=== PATIENT | male | born 1950 | race American Indian/Alaskan Native ===

== ENCOUNTER 2017-04-29 10:08 | Inpatient (IN) | payer MEDICARE ==
[2017-04-29 10:41] LABS: Basophils % (Auto) 0.8 % (0.0-1.8); Eosinophils % (Auto) 1.4 % (0.0-4.3); Hematocrit 51.3 % (35.5-45.6); Hemoglobin 17.5 gm/dl (11.8-15.2); Mean Corpuscular HGB Conc 34 % (32-34); Mean Corpuscular Hemoglobin 31 pg (28-32); Mean Corpuscular Volume 90 fl (84-94); Platelet Count 213 K/mm3 (140-440); Red Cell Distribution Width 15.1 % (13.2-15.2)
[2017-04-29 10:52] LABS: INR 0.98 (0.87-1.13)
[2017-04-29 10:54] LABS: Partial Thromboplastin Time 28.2 Sec. (24.2-36.6)
[2017-04-29 10:57] LABS: Anion Gap 20 mmol/L; Blood Urea Nitrogen 13 mg/dL (9-20); Calcium 9.7 mg/dL (8.4-10.2); Carbon Dioxide 25 mmol/L (22-30); Chloride 97.2 mmol/L (98-107); Glucose 160 mg/dL (75-100); Potassium 4.6 mmol/L (3.6-5.0); Sodium 138 mmol/L (137-145)
--- NOTE | 2017-04-29 10:59 | Emergency Department Report ---
ED Neuro Deficit HPI - General Chief Complaint: Neuro Symptoms/Deficit Stated Complaint: VISION PROBLEMS/DIZZY Time Seen by Provider: 04/29/17 10:28 Source: patient, family Mode of arrival: Ambulatory Limitations: No Limitations - History of Present Illness Initial Comments: 66-year-old male presents to the emergency department with lightheadedness and vision changes. Patient states that at 6:00 last night he began having lightheadedness and states that he is been unable to see half of his visual camejo. Patient describes darkness on the lower half of his visual camejo in both eyes. The visual deficit is greater in the right eye according to the patient. He is reporting mild headache. He denies blurry vision, numbness or extremity weakness. There are no other complaints. -: Last night Time: 18:00 Presenting Symptoms: Present: Blurred/Loss of Vision History of same: No Place: home Severity: moderate Improves With: none Worsens With: none On Anticoagulants: No Context: sudden onset Associated Symptoms: headaches, other (lightheadedness) Treatments Prior to Arrival: none - Related Data Home Medications: Home Medications Medication Instructions Recorded Confirmed Last Taken No Known Home Medications [No 04/29/17 04/29/17 Unknown Reported Home Medications] Allergies/Adverse Reactions: Allergies Allergy/AdvReac Type Severity Reaction Status Date / Time No Known Allergies Allergy Verified 04/29/17 10:20 ED Review of Systems ROS: Stated complaint: VISION PROBLEMS/DIZZY Other details as noted in HPI Comment: All other systems reviewed and negative Eyes: vision change Cardiovascular: other (lightheadedness) Neurological: headache ED Past Medical Hx - Past Medical History Previous Medical History?: No - Surgical History Past Surgical History?: No - Family History Family history: no significant - Social History Smoking Status: Current Every Day Smoker Substance Use Type: None - Medications Home Medications: Home Medications Medication Instructions Recorded Confirmed Last Taken Type No Known Home Medications [No 04/29/17 04/29/17 Unknown History Reported Home Medications] ED Neuro Physical Exam - General Limitations: No Limitations General appearance: alert, in no apparent distress Suspected Stroke: Yes - Head Head exam: Present: atraumatic, normocephalic - Eye Eye exam: Present: normal appearance, PERRL, EOMI - ENT ENT exam: Present: normal exam, normal orophraynx, mucous membranes moist - Neck Neck exam: Present: normal inspection, full ROM. Absent: tenderness - Respiratory Respiratory exam: Present: normal lung sounds bilaterally. Absent: respiratory distress - Cardiovascular Cardiovascular Exam: Present: regular rate, normal rhythm, normal heart sounds - GI/Abdominal GI/Abdominal exam: Present: soft, normal bowel sounds. Absent: distended, tenderness - Extremities Exam Extremities exam: Present: normal inspection, full ROM. Absent: tenderness - Back Exam Back exam: Present: normal inspection, full ROM. Absent: tenderness - Neurological Exam Neurological exam: Present: alert, oriented X3, motor sensory deficit - NIHSS Assessment Interval: Baseline 1a. Level of Consciousness: alert 1b. LOC Questions: answers correctly 1c. LOC Commands: performs tasks correctly 2. Best Gaze: normal 3. Visual: bilateral hemianopia 4. Facial Palsy: normal symmetrical movement 5b. Motor Arm Right: no drift 5a. Motor Arm Left: no drift 6a. Motor Leg Left: no drift 6b. Motor Leg Right: no drift 7. Limb Ataxia: absent 8. Sensory: normal 9. Best Language: no aphasia 10. Dysarthria: normal 11. Extinction/Inattention: no abnormality Total Score: 3 Stroke Severity: Minor Stroke - Skin Skin exam: Present: warm, dry, intact ED Course Vital Signs 04/29/17 04/29/17 10:20 10:56 Temperature 97.9 F 98.1 F Pulse Rate 97 H 92 H Respiratory 18 16 Rate Blood Pressure 206/111 Blood Pressure 178/109 [Left] O2 Sat by Pulse 100 97 Oximetry - Lab Data Result diagrams: 04/29/17 10:27 04/29/17 10:27 Lab Results 04/29/17 04/29/17 04/29/17 Range/Units 10:27 10:27 10:27 WBC 7.0 (4.5-11.0) K/mm3 RBC 5.70 H (3.65-5.03) M/mm3 Hgb 17.5 H (11.8-15.2) gm/dl Hct 51.3 H (35.5-45.6) % MCV 90 (84-94) fl MCH 31 (28-32) pg MCHC 34 (32-34) % RDW 15.1 (13.2-15.2) % Plt Count 213 (140-440) K/mm3 Lymph % (Auto) 29.3 (13.4-35.0) % [place] % (Auto) 5.4 (0.0-7.3) % Eos % (Auto) 1.4 (0.0-4.3) % Baso % (Auto) 0.8 (0.0-1.8) % Lymph # 2.1 (1.2-5.4) K/mm3 [place] # 0.4 (0.0-0.8) K/mm3 Eos # 0.1 (0.0-0.4) K/mm3 Baso # 0.1 (0.0-0.1) K/mm3 Seg Neutrophils % 63.1 (40.0-70.0) % Seg Neutrophils # 4.4 (1.8-7.7) K/mm3 PT 12.9 (12.2-14.9) Sec. INR 0.98 (0.87-1.13) APTT 28.2 (24.2-36.6) Sec. Thrombin Time (15.1-19.6) Sec. Sodium 138 (137-145) mmol/L Potassium 4.6 (3.6-5.0) mmol/L Chloride 97.2 L (98-107) mmol/L Carbon Dioxide 25 (22-30) mmol/L Anion Gap 20 mmol/L BUN 13 (9-20) mg/dL Creatinine 1.0 (0.8-1.5) mg/dL Estimated GFR > 60 ml/min BUN/Creatinine Ratio 13.00 % Glucose 160 H (75-100) mg/dL Calcium 9.7 (8.4-10.2) mg/dL Troponin T < 0.010 (0.00-0.029) ng/mL 04/29/17 Range/Units 10:27 WBC (4.5-11.0) K/mm3 RBC (3.65-5.03) M/mm3 Hgb (11.8-15.2) gm/dl Hct (35.5-45.6) % MCV (84-94) fl MCH (28-32) pg MCHC (32-34) % RDW (13.2-15.2) % Plt Count (140-440) K/mm3 Lymph % (Auto) (13.4-35.0) % [place] % (Auto) (0.0-7.3) % Eos % (Auto) (0.0-4.3) % Baso % (Auto) (0.0-1.8) % Lymph # (1.2-5.4) K/mm3 [place] # (0.0-0.8) K/mm3 Eos # (0.0-0.4) K/mm3 Baso # (0.0-0.1) K/mm3 Seg Neutrophils % (40.0-70.0) % Seg Neutrophils # (1.8-7.7) K/mm3 PT (12.2-14.9) Sec. INR (0.87-1.13) APTT (24.2-36.6) Sec. Thrombin Time 15.0 L (15.1-19.6) Sec. Sodium (137-145) mmol/L Potassium (3.6-5.0) mmol/L Chloride (98-107) mmol/L Carbon Dioxide (22-30) mmol/L Anion Gap mmol/L BUN (9-20) mg/dL Creatinine (0.8-1.5) mg/dL Estimated GFR ml/min BUN/Creatinine Ratio % Glucose (75-100) mg/dL Calcium (8.4-10.2) mg/dL Troponin T (0.00-0.029) ng/mL - EKG Data -: EKG Interpreted by [place] EKG shows normal: sinus rhythm, axis, intervals, QRS complexes, ST-T waves Rate: normal When compared to previous EKG there are: previous EKG unavailable Interpretation: normal EKG (with occasional PVC) - Radiology Data Radiology results: image reviewed CT of the brain shows no acute intracranial abnormality. - Medical Decision Making Lab and imaging results reviewed and discussed with the patient and family. Patient is to be admitted by the hospitalist for MRI and further stroke risk stratification. - Differential Diagnosis stroke - Thrombolytic Inclusion/Exclusion Thrombolytic Exclusion Criteria: Symptom Onset > 3 Hours Critical care attestation.: If time is entered above; I have spent that time in minutes in the direct care of this critically ill patient, excluding procedure time. ED Disposition Clinical Impression: Stroke Qualifiers: CVA mechanism: unspecified Qualified Code(s): I63.9 - Cerebral infarction, unspecified Disposition: OP ADMIT IP TO THIS HOSP Is pt being admited?: Yes Condition: Stable Time of Disposition: 11:25
[2017-04-29] MEDS ORDERED: ECOTRIN PO ONE (11:25)
--- NOTE | 2017-04-29 11:45 | Cat Scan Report ---
CT HEAD WITHOUT CONTRAST: HISTORY: Dizziness, vision loss in right eye. Serial contiguous axial images were obtained through the cranium. Intravenous contrast material was not administered. The ventricles are normal in size and appearance. There is no mass effect or midline shift. No areas of abnormally increased or decreased attenuation are seen. No mass lesion is seen. The mastoid air cells and visualized portions of the sinuses are normal. IMPRESSION: No acute intracranial process is appreciated. If further evaluation is needed, MRI could be obtained.
[2017-04-29] MEDS ORDERED: PHENERGAN PR PRN (12:08)
[2017-04-29] MEDS ORDERED: NORMODYNE IV PRN (12:08)
[2017-04-29] MEDS ORDERED: MILK OF MAGNESIA PO PRN (12:08)
[2017-04-29] MEDS ORDERED: REGLAN PO PRN (12:08)
[2017-04-29] MEDS ORDERED: SENOKOT PO PRN (12:08)
[2017-04-29] MEDS ORDERED: SODIUM CHLORIDE FLUSH SYRINGE 10 ML IV PRN (12:08)
[2017-04-29] MEDS ORDERED: DULCOLAX PR PRN (12:08)
[2017-04-29] MEDS ORDERED: ZOFRAN IV PRN (12:08)
--- NOTE | 2017-04-29 12:27 | History and Physical Report ---
History of Present Illness Date of admission: 04/29/17 11:26 Chief complaint: i cant see the lower visual field History of present illness: 66M with no significant pmh except smoking 2 cigarettes per day, denies any history of heavy smoking, does not see a doctor. He is not aware of any chronic medical problems, he stated that he went to an ER about 3 or 4 months ago at [facility] for syncope, he was not told then that he suffered from hypertension. He presents complaining of loss of inferior visual camejo in both eyes. He demonstrates that he was unable to see the bottom half of the television and when given a sheet of paper he states that he is not able to see the bottom 3 lines. He states that he's actually had a few episodes similar to this in the past but they were very short-lived and resolved very quickly this on the other hand has not resolved quickly. It started exactly 6 PM last night , associated with headaches, he denies chest pain, denies focal weakness, but this time as opposed to the previous encounters it is not resolving on its own prompting to coming to the hospital for further evaluation. He describes the headache as a global throbbing pain in his head it about 6 out of 10 he tried taking some [id number] medication for about a new not improve it. Past History Past Medical History: No medical history Past Surgical History: No surgical history Social history: smoking (2 cigarettes per day denies any history of heavy smoking). denies: alcohol abuse (drinks on occasion only) Family history: no significant family history Medications and Allergies Allergies Allergy/AdvReac Type Severity Reaction Status Date / Time No Known Allergies Allergy Verified 04/29/17 10:20 Home Medications Medication Instructions Recorded Confirmed Last Taken Type No Known Home Medications [No 04/29/17 04/29/17 Unknown History Reported Home Medications] Active Meds: Active Medications Acetaminophen (Tylenol) 650 mg PO Q4H PRN PRN Reason: Pain, Mild (1-3) Aspirin (Aspirin) 325 mg PO QDAY BRITNEY Bisacodyl (Dulcolax) 10 mg ND QDAY PRN PRN Reason: Constipation Labetalol HCl (Normodyne) 10 mg IV Q4H PRN PRN Reason: for SBP >185 Magnesium Hydroxide (Milk Of Magnesia) 30 ml PO Q4H PRN PRN Reason: Constipation Metoclopramide HCl (Reglan) 10 mg PO Q6H PRN PRN Reason: Nausea And Vomiting Ondansetron HCl (Zofran) 4 mg IV Q8H PRN PRN Reason: N/V unrelieved by Reglan Promethazine HCl (Phenergan) 25 mg ND Q6H PRN PRN Reason: Nausea And Vomiting Senna (Senokot) 8.6 mg PO Q12H PRN PRN Reason: Laxative Effect Simvastatin (Zocor) 20 mg PO QHS BRITNEY Sodium Chloride (Sodium Chloride Flush Syringe 10 Ml) 10 ml INJ PRN PRN PRN Reason: LINE FLUSH Review of Systems All systems: negative (as stated in HPI, 14 systems reviewed and otherwise negative) Exam - Constitutional Vitals: Temp Pulse Resp BP Pulse Ox 98.1 F 92 H 16 178/109 97 04/29/17 10:56 04/29/17 10:56 04/29/17 10:56 04/29/17 10:56 04/29/17 10:56 General appearance: Present: no acute distress, well-nourished - EENT Eyes: Present: PERRL ENT: hearing intact, clear oral mucosa - Neck Neck: Present: supple, normal ROM - Respiratory Respiratory effort: normal Respiratory: bilateral: CTA - Cardiovascular Heart Sounds: Present: S1 & S2. Absent: rub, click - Extremities Extremities: pulses symmetrical, No edema Peripheral Pulses: within normal limits - Abdominal General gastrointestinal: Present: soft, non-tender, non-distended, normal bowel sounds Male genitourinary: Present: normal - Integumentary Integumentary: Present: clear, warm, dry - Musculoskeletal Musculoskeletal: gait normal, strength equal bilaterally - Psychiatric Psychiatric: appropriate mood/affect, intact judgment & insight - Neurologic Neurologic: CNII-XII intact, moves all extremities, other (lower visual field deficit) Results - Labs CBC & Chem 7: 04/29/17 10:27 04/29/17 10:27 Labs: Laboratory Last Values WBC 7.0 K/mm3 (4.5-11.0) 04/29/17 10:27 RBC 5.70 M/mm3 (3.65-5.03) H 04/29/17 10:27 Hgb 17.5 gm/dl (11.8-15.2) H 04/29/17 10:27 Hct 51.3 % (35.5-45.6) H 04/29/17 10:27 MCV 90 fl (84-94) 04/29/17 10:27 MCH 31 pg (28-32) 04/29/17 10:27 MCHC 34 % (32-34) 04/29/17 10:27 RDW 15.1 % (13.2-15.2) 04/29/17 10:27 Plt Count 213 K/mm3 (140-440) 04/29/17 10:27 Lymph % (Auto) 29.3 % (13.4-35.0) 04/29/17 10:27 [place] % (Auto) 5.4 % (0.0-7.3) 04/29/17 10:27 Eos % (Auto) 1.4 % (0.0-4.3) 04/29/17 10:27 Baso % (Auto) 0.8 % (0.0-1.8) 04/29/17 10:27 Lymph # 2.1 K/mm3 (1.2-5.4) 04/29/17 10:27 [place] # 0.4 K/mm3 (0.0-0.8) 04/29/17 10:27 Eos # 0.1 K/mm3 (0.0-0.4) 04/29/17 10:27 Baso # 0.1 K/mm3 (0.0-0.1) 04/29/17 10:27 Seg Neutrophils % 63.1 % (40.0-70.0) 04/29/17 10:27 Seg Neutrophils # 4.4 K/mm3 (1.8-7.7) 04/29/17 10:27 PT 12.9 Sec. (12.2-14.9) 04/29/17 10:27 INR 0.98 (0.87-1.13) 04/29/17 10:27 APTT 28.2 Sec. (24.2-36.6) 04/29/17 10:27 Thrombin Time 15.0 Sec. (15.1-19.6) L 04/29/17 10:27 Sodium 138 mmol/L (137-145) 04/29/17 10:27 Potassium 4.6 mmol/L (3.6-5.0) 04/29/17 10:27 Chloride 97.2 mmol/L (98-107) L 04/29/17 10:27 Carbon Dioxide 25 mmol/L (22-30) 04/29/17 10:27 Anion Gap 20 mmol/L 04/29/17 10:27 BUN 13 mg/dL (9-20) 04/29/17 10:27 Creatinine 1.0 mg/dL (0.8-1.5) 04/29/17 10:27 Estimated GFR > 60 ml/min 04/29/17 10:27 BUN/Creatinine Ratio 13.00 % 04/29/17 10:27 Glucose 160 mg/dL (75-100) H 04/29/17 10:27 Calcium 9.7 mg/dL (8.4-10.2) 04/29/17 10:27 Troponin T < 0.010 ng/mL (0.00-0.029) 04/29/17 10:27 - Imaging and Cardiology CT Scan - head: image reviewed (no acute pathology) Venous US: image reviewed (carotids, no significant stenosis) Assessment and Plan Assessment and plan: 66M who denies any significant past medical history who presents with acute loss of vision in the lower visual camejo Acute CVA CT head unremarkable, obtain MRI MRA head, neurology consult, carotid Dopplers, echocardiogram, allow permissive hypertension, aspirin and statin, check lipid panel in the morning Hypertensive emergency Given CVA, will allow some permissive hypertension, labetalol ordered when necessary every 4 hours to keep systolic blood pressure between 165 and 185 Tobacco abuse Patient is not a heavy user, he was offered getting patches, he does not think he will need him, he was counseled about cessation given risk of another stroke , heart attack and cancer, he verbalized understanding DVT prophylaxis SCDs in light of acute CVA VTE prophylaxis?: Mechanical Plan of care discussed with patient/family: Yes
--- NOTE | 2017-04-29 13:41 | Magnetic Resonance Report ---
MRA HEAD WITHOUT CONTRAST HISTORY: Stroke. [id number] imaging with MIP reformations of the [place] of [place] is submitted. Limited exam with motion artifacts. The arteries appear widely patent and free of hemodynamically significant stenosis or aneurysm dilatation. Both vertebral arteries are identified appearing patent as well. IMPRESSION: Limited exam. No large vessel occlusion or aneurysm is identified.
[2017-04-29 14:06] LABS: Urine Drugs of Abuse Note Disclamer
[2017-04-29 14:30] LABS: Bilirubin,Urine NEG (Negative); Blood,Urine NEG (Negative); Ketones,Urine NEG (Negative); Leukocyte Esterase,Urine NEG (Negative); Nitrite,Urine NEG (Negative); Protein,Urine <15 mg/dL mg/dL (Negative); Urobilinogen,Urine < 2.0 mg/dL (<2.0)
[2017-04-29] MEDS: TYLENOL PO PRN (20:33)
[2017-04-29] MEDS: ZOCOR PO SCH (22:11)
--- NOTE | 2017-04-30 10:07 | Magnetic Resonance Report ---
MRI OF THE BRAIN WITHOUT CONTRAST: HISTORY: CVA PROCEDURE: Multiplanar, multisequence MR imaging of the brain without IV contrast was performed. FINDINGS: There are 3 subcentimeter foci of diffusion restriction in the left cerebellar hemisphere. There are also areas of cortical diffusion restriction in both occipital lobes measuring 1-2 cm bilaterally. There are also very subtle, small areas of diffusion restriction in the thalami, left greater than right. These findings suggest vertebrobasilar insufficiency. Please note that limited MRA head performed yesterday demonstrated no obvious large vessel occlusion. Consider further evaluation with CTA head as needed. There is mild diffuse cortical volume loss and mild nonspecific chronic white matter changes which appear appropriate for this persons age. No chronic infarct is identified. No extra-axial fluid collection. The midline structures are central. The basal cisterns are patent. Normal ventricular size. The orbital cavities and sella turcica demonstrate no abnormality. The visualized paranasal sinuses and mastoid air cells are well aerated. IMPRESSION: There are multiple relatively small areas of acute to subacute ischemia in the vertebrobasilar distribution as outlined above. No evidence for hemorrhage or mass.
--- NOTE | 2017-04-30 10:26 | Admit Criteria Form ---
Admission Criteria Documentation: STROKE: ISCHEMIC Clinical Indications for Admission to Inpatient Care (Place 'X' for any and all applicable criteria): Admission is indicated for ANY ONE of the following(1)(2)(3)(4): [X]I. Acute stroke Extended stay beyond goal length of stay may be needed for(1)(2) [ ]a) Major deficit or clinical deterioration [ ]b) Hospital-acquired infection (eg, urinary tract infection, pneumonia) [ ]c) Embolic cause of stroke [ ]d) Venous thromboembolism(9) [ ]e) Seizures [ ]f) Bleeding (eg, cerebral) [ ]g) Increased intracranial pressure [ ]h) Comorbidities [ ]i) Surgical intervention The original [facility] content created by [employer] has been revised. The portions of the content which have been revised are identified through the use of italic text or in bold, and [facility] has neither reviewed nor approved the modified material. All other unmodified content is copyright [facility]. Please see references footnoted in the original [facility] edition 2016 Admission Criteria Met: Yes
--- NOTE | 2017-04-30 10:31 | Progress Note ---
Assessment and Plan Assessment and plan: Acute CVA CT head unremarkable, f/u MRI MRA head, carotid Dopplers, lipid panel and echocardiogram. Continue aspirin and statin. Neurology consult pending Hypertensive emergency Given CVA, will allow some permissive hypertension, labetalol ordered when necessary every 4 hours to keep systolic blood pressure between 165 and 185 Tobacco abuse Patient is not a heavy user, he was offered getting patches, he does not think he will need him, he was counseled about cessation given risk of another stroke , heart attack and cancer and he verbalized understanding History Interval history: No new issues overnight. Patient still with the visual disturbances and acute loss of vision in the lower visual camejo Hospitalist Physical - Constitutional Vitals: Temp Pulse Resp BP Pulse Ox 98.1 F 85 22 152/101 98 04/30/17 07:30 04/30/17 07:30 04/30/17 07:30 04/30/17 07:30 04/30/17 05:05 General appearance: Present: no acute distress, well-nourished - EENT Eyes: Present: PERRL, EOM intact ENT: hearing intact, clear oral mucosa, dentition normal - Neck Neck: Present: supple, normal ROM - Respiratory Respiratory effort: normal Respiratory: bilateral: CTA - Cardiovascular Rhythm: regular Heart Sounds: Present: S1 & S2. Absent: gallop, rub - Extremities Extremities: no ischemia, No edema, Full ROM - Abdominal General gastrointestinal: soft, non-tender, non-distended, normal bowel sounds - Integumentary Integumentary: Present: clear, warm, dry - Neurologic Neurologic: CNII-XII intact, moves all extremities Results - Labs CBC & Chem 7: 04/29/17 10:27 04/29/17 10:27 Labs: Laboratory Last Values WBC 7.0 K/mm3 (4.5-11.0) 04/29/17 10:27 RBC 5.70 M/mm3 (3.65-5.03) H 04/29/17 10:27 Hgb 17.5 gm/dl (11.8-15.2) H 04/29/17 10:27 Hct 51.3 % (35.5-45.6) H 04/29/17 10:27 MCV 90 fl (84-94) 04/29/17 10:27 MCH 31 pg (28-32) 04/29/17 10:27 MCHC 34 % (32-34) 04/29/17 10:27 RDW 15.1 % (13.2-15.2) 04/29/17 10:27 Plt Count 213 K/mm3 (140-440) 04/29/17 10:27 Lymph % (Auto) 29.3 % (13.4-35.0) 04/29/17 10:27 [place] % (Auto) 5.4 % (0.0-7.3) 04/29/17 10:27 Eos % (Auto) 1.4 % (0.0-4.3) 04/29/17 10:27 Baso % (Auto) 0.8 % (0.0-1.8) 04/29/17 10:27 Lymph # 2.1 K/mm3 (1.2-5.4) 04/29/17 10:27 [place] # 0.4 K/mm3 (0.0-0.8) 04/29/17 10:27 Eos # 0.1 K/mm3 (0.0-0.4) 04/29/17 10:27 Baso # 0.1 K/mm3 (0.0-0.1) 04/29/17 10:27 Seg Neutrophils % 63.1 % (40.0-70.0) 04/29/17 10:27 Seg Neutrophils # 4.4 K/mm3 (1.8-7.7) 04/29/17 10:27 PT 12.9 Sec. (12.2-14.9) 04/29/17 10:27 INR 0.98 (0.87-1.13) 04/29/17 10:27 APTT 28.2 Sec. (24.2-36.6) 04/29/17 10:27 Thrombin Time 15.0 Sec. (15.1-19.6) L 04/29/17 10:27 Sodium 138 mmol/L (137-145) 04/29/17 10:27 Potassium 4.6 mmol/L (3.6-5.0) 04/29/17 10:27 Chloride 97.2 mmol/L (98-107) L 04/29/17 10:27 Carbon Dioxide 25 mmol/L (22-30) 04/29/17 10:27 Anion Gap 20 mmol/L 04/29/17 10:27 BUN 13 mg/dL (9-20) 04/29/17 10:27 Creatinine 1.0 mg/dL (0.8-1.5) 04/29/17 10:27 Estimated GFR > 60 ml/min 04/29/17 10:27 BUN/Creatinine Ratio 13.00 % 04/29/17 10:27 Glucose 160 mg/dL (75-100) H 04/29/17 10:27 Calcium 9.7 mg/dL (8.4-10.2) 04/29/17 10:27 Troponin T < 0.010 ng/mL (0.00-0.029) 04/29/17 10:27 Triglycerides 119 mg/dL (2-149) 04/30/17 07:01 Cholesterol 201 mg/dL (50-199) H 04/30/17 07:01 LDL Cholesterol Direct 130 mg/dL (50-130) 04/30/17 07:01 HDL Cholesterol 48 mg/dL (40-59) 04/30/17 07:01 Cholesterol/HDL Ratio 4.18 % 04/30/17 07:01 Urine Color Straw (Yellow) 04/29/17 13:49 Urine Turbidity Clear (Clear) 04/29/17 13:49 Urine pH 5.0 (5.0-7.0) 04/29/17 13:49 Ur Specific [place] 1.009 (1.003-1.030) 04/29/17 13:49 Urine Protein <15 mg/dl mg/dL (Negative) 04/29/17 13:49 Urine Glucose (UA) Neg mg/dL (Negative) 04/29/17 13:49 Urine Ketones Neg mg/dL (Negative) 04/29/17 13:49 Urine Blood Neg (Negative) 04/29/17 13:49 Urine Nitrite Neg (Negative) 04/29/17 13:49 Ur Reducing Substances Not Reportable 04/29/17 13:49 Urine Bilirubin Neg (Negative) 04/29/17 13:49 Urine Ictotest Not Reportable 04/29/17 13:49 Urine Urobilinogen < 2.0 mg/dL (<2.0) 04/29/17 13:49 Ur Leukocyte Esterase Neg (Negative) 04/29/17 13:49 Urine WBC (Auto) 0.0 /HPF (0.0-6.0) 04/29/17 13:49 Urine RBC (Auto) 2.0 /HPF (0.0-6.0) 04/29/17 13:49 U Epithel Cells (Auto) 2.0 /HPF (0-13.0) 04/29/17 13:49 Urine Opiates Screen Presumptive negative 04/29/17 13:44 Urine Methadone Screen Presumptive negative 04/29/17 13:44 Ur Barbiturates Screen Presumptive negative 04/29/17 13:44 Ur Phencyclidine Scrn Presumptive negative 04/29/17 13:44 Ur Amphetamines Screen Presumptive negative 04/29/17 13:44 U Benzodiazepines Scrn Presumptive negative 04/29/17 13:44 Urine Cocaine Screen Presumptive negative 04/29/17 13:44 U Marijuana (THC) Screen Presumptive negative 04/29/17 13:44 Drugs of Abuse Note Disclamer 04/29/17 13:44
--- NOTE | 2017-04-30 11:45 | Event Note ---
Date: 04/30/17 I attempted to see this patient between my scheduled coverage time of 8 AM-12 PM but they were not present in the floor room. I will return to staff in consultation 05/01.
[2017-04-30] MEDS: ASPIRIN PO SCH (14:56)
[2017-04-30] MEDS: ZOCOR PO SCH (22:48)
--- NOTE | 2017-05-01 08:01 | Vascular Lab Report ---
CAROTID DUPLEX STUDY: RIGHT PSVEDV CCA PROX:8011 CCA DIST:4212 ICA PROX:3214 ICA MID:6425 ICA DIST:7830 ECA: 6011 VERT: 50 20 LEFT PSVEDV CCA PROX:58 7 CCA DIST:4912 ICA PROX:3716 ICA MID:5927 ICA DIST:6327 ECA: 627 VERT: 33 10 REASON FOR EXAM: Stroke. COMMENTS ON THE RIGHT: Doppler frequency analysis is consistent with 16 to 49 percent diameter reduction of the internal carotid artery. Minimal amount of plaque is seen. The common carotid artery is patent. The external carotid artery is patent. The vertebral artery has antegrade flow. COMMENTS ON THE LEFT: Doppler frequency analysis is consistent with 16 to 49 percent diameter reduction of the internal carotid artery. Minimal amount of plaque is seen. The common carotid artery is patent. The external carotid artery is patent. The vertebral artery has antegrade flow. IMPRESSION: Less than 50% diameter reduction in the internal carotid arteries bilaterally. Consider repeat carotid artery duplex in 12 months.
--- NOTE | 2017-05-01 11:06 | Consultation ---
History of Present Illness Consult date: 05/01/17 Requesting physician: MEAGAN PADRON Reason for Consult: stroke Chief complaint: vision loss History of present illness: 66 YO M hx Tob abuse p/w acute onset loss of vision in the L side jeane inferiorly. Sx are constant. There are no clear aggravating, relieving or temporal factors. Severity was enough to cause inability to effectively see to the left. He denies slurred speech and double vision. He denies dizziness, neck pain. Past History Past Medical History: No medical history Past Surgical History: No surgical history Social history: smoking (2 cigarettes per day denies any history of heavy smoking). denies: alcohol abuse (drinks on occasion only) Family history: no significant family history Medications and Allergies Allergies Allergy/AdvReac Type Severity Reaction Status Date / Time No Known Allergies Allergy Verified 04/29/17 10:20 Home Medications Medication Instructions Recorded Confirmed Last Taken Type No Known Home Medications [No 04/29/17 04/29/17 Unknown History Reported Home Medications] Active Meds: Active Medications Acetaminophen (Tylenol) 650 mg PO Q4H PRN PRN Reason: Pain, Mild (1-3) Last Admin: 04/29/17 20:33 Dose: 650 mg Aspirin (Aspirin) 325 mg PO QDAY [facility] Last Admin: 04/30/17 14:56 Dose: 325 mg Bisacodyl (Dulcolax) 10 mg [place] QDAY PRN PRN Reason: Constipation Labetalol HCl (Normodyne) 10 mg IV Q4H PRN PRN Reason: for SBP >185 Last Admin: 04/29/17 13:53 Dose: 10 mg Magnesium Hydroxide (Milk Of Magnesia) 30 ml PO Q4H PRN PRN Reason: Constipation Metoclopramide HCl (Reglan) 10 mg PO Q6H PRN PRN Reason: Nausea And Vomiting Last Admin: 04/30/17 14:57 Dose: 10 mg Ondansetron HCl (Zofran) 4 mg IV Q8H PRN PRN Reason: N/V unrelieved by Reglan Promethazine HCl (Phenergan) 25 mg [place] Q6H PRN PRN Reason: Nausea And Vomiting Senna (Senokot) 8.6 mg PO Q12H PRN PRN Reason: Laxative Effect Simvastatin (Zocor) 20 mg PO QHS [facility] Last Admin: 04/30/17 22:48 Dose: 20 mg Sodium Chloride (Sodium Chloride Flush Syringe 10 Ml) 10 ml IV PRN PRN PRN Reason: LINE FLUSH Review of Systems All systems: negative Neurological: loss of vision, no paralysis, no weakness, no parathesias, no numbness, no tingling, no seizures, no syncope, no vertigo, no headaches, no change in speech, no change in mentation, no confusion, no memory loss, no gait dysfunction, no motor disturbance, no sensory deficit, no double vision Physical Examination - Vital Signs Vital Signs: Vital Signs Temp Pulse Resp BP Pulse Ox 97.9 F 97 H 18 206/111 100 04/29/17 10:20 04/29/17 10:20 04/29/17 10:20 04/29/17 10:20 04/29/17 10:20 - Constitutional General appearance: comfortable - EENT EENT: Present: ATNC, PERRL, mucous membranes moist, hearing intact - Respiratory Respiratory: Present: chest non-tender, normal breath sounds, no respiratory distress - Cardiovascular Cardiovascular: Present: regular rate Extremities: Present: no peripheral edema bilatateraly, no clubbing, cyanosis, no inflammation, no ischemia or petechiae - Gastrointestinal Gastrointestinal: Present: normoactive bowel sounds, soft, non-distended - Integumentary Integumentary: Present: normal - Neurologic Cranial nerve examination: PERRL, EOMI, V1/V2/V3 grossly intact, face symmetric , tongue midline, intact, Intact Vestibulo-ocular r, intact corneal reflex, normal palatal elevation, other (L inferior quadrantopsia) Speech examination: intact Sensorimotor examination: intact Detailed motor examination: grossly full strength in Motor examination - right side: 5/5: biceps, triceps, wrist flexion, wrist extension, anchor tack puller, hip flexors, knee extensors, dorsiflexion, toe extension (EHL) , plantarflexion Motor examination - left side: 5/5: biceps, triceps, wrist flexion, wrist extension, anchor tack puller, hip flexors, knee extensors, dorsiflexion, toe extension (EHL) , plantarflexion Detailed sensory examination: intact, light touch, temperature Reflex and gait examination: intact Reflexes: 1+: ankle, 2+: bicep, knee, tricep - Musculoskeletal Musculoskeletal: Present: no fluid collection, no pain, normal range of motion - Psychiatric Psychiatric: Present: mood/affect appropriate, cooperative Results - Laboratory Findings CBC and BMP: 04/29/17 10:27 04/29/17 10:27 Abnormal Lab Findings: Abnormal Labs 04/30/17 04/30/17 04/30/17 07:01 16:23 21:48 POC Glucose 154 H 170 H Cholesterol 201 H Assessment and Plan 66 YO M hx Tob abuse does not go to physician regularly p/w left inferior vision loss found on MRI Brain to have acute multifocal posterior circulation stroke. Pt denies neck pain or any features to suggest dissection. MRA Head neg. CDs neg. LDL 130. TTE neg. I suspect stroke d/t posterior circulation athero. Plan and Recommendation: 1. No indication for pharmacologic thrombolysis with IV tPA or mechanical thrombectomy due to last known normal > 6 hrs from presentation. Current NIHSS 1. 2. Telemetry bed w/ Q4 hour neuro checks 3. 30 day ambulatory Tele monitor ? pAFib 4. Autoregulate SBP to goal 120-160 as pt is outside permissive HTN window. 5. Secondary stroke prevention: ASA 325mg Daily x 1 then 81mg QDay & upgrade to full dose statin therapy (Crestor 20mg or 40mg OR Lipitor 40mg or 80mg Daily OR Zocor 40mg QDay) for goal LDL < 70. No firm indication at this point for therapeutic anticoagulation as pt has not had AFib captured on telemetry monitoring. 6. F/E/N: isotonic IVF prn, prn replete, bedside speech/swallow eval prior to PO intake. 7. DVT Prophylaxis 8. Stroke education, PT/OT/Speech Therapy consults, CM evaluation 9. For any changes in neurologic status, pls obtain STAT CTH w/o contrast and call neurology 10. If pt remains clinically stable, no neurologic contraindication to discharge w/ outpt neuro follow up.
[2017-05-01 12:36] VITALS: BP 142/95
--- NOTE | 2017-05-01 13:03 | Discharge Summary ---
Providers - Providers Date of Admission: 04/29/17 11:26 Date of discharge: 05/01/17 Attending physician: MEAGAN PADRON 04/29/17 12:08 Consult to Case Management [CONS] Routine Services Needed at Discharge: Occupational Therapy Notified:: y Was contact made?: Yes Consult to Dietitian/Nutrition [CONS] Routine Physician Instructions: Reason For Exam: Reason for Consult: Nutrition Recommendations Reason for Consult: Diet education Occupational Therapy Evaluate and Treat [CONS] Routine Comment: Reason For Exam: Neuro deficits Physical Therapy Evaluation and Treat [CONS] Routine Comment: Reason For Exam: Neuro deficits 04/30/17 07:51 Consult to Physician [CONS] Routine Consulting Provider: ROD WEISS Reason For Exam: cva Place consult to:: Dr. Weiss Notified:: Viry DORMAN Was contact made?: Yes If yes, spoke with:: Dr. Weiss Time called:: 09:45 Primary care physician: [employer] DESIGNER Hospitalization Condition: Stable Hospital course: Patient is 66-year-old man with history of hypertension who presents with acute left-sided vision loss. 04/30/2017 MRI brain without contrast reported as multiple small areas of acute to subacute ischemia in the vertebrobasilar distribution as outlined above, no evidence of hemorrhage or mass. 04/29/2017 2D echocardiogram reported as global left ventricular systolic function is lower limits of normal, estimated EF is 50-55%, mild concentric left ventricular hypertrophy, trace MR. -Acute CVA with infarct with visual left hemianopsia which has refused rehabilitation and physical therapy and wants to go home -Accelerated hypertension -Dyslipidemia -Tobacco dependancy: counselled on stopping. Disposition: DC/TX-06 HOME UNDER HOME [facility] Time spent for discharge: 32 minutes Core Measure Documentation - Palliative Care Palliative Care/ Comfort Measures: Not Applicable - Core Measures Any of the following diagnoses?: stroke - VTE Discharge Requirements Deep Vein Thrombosis/Pulmonary Embolism Present on Admission: No Has pt received <5 days of overlap therapy or INR<2.0: No Anticoagulant overlap therapy prescribed at discharge: No Contraindication No Overlap Therapy order at DC: Not Indicated - Stroke Discharge Requirements Statin for LDL = or >70 mg/dl on DC: Yes Anticoag for atrial fib/atrial flutter: No Reason for no anticoag for AF/F on DC: Not Indicated Antithrombotic for ischemic stroke: Yes Exam - Physical Exam Narrative exam: GEN: WDWN, NAD, AWAKE, ALERT, ORIENTATED x 3 CVS: RRR, NORMAL S1S2 LUNGS/CHEST: CTA B, NORMAL CHEST EXPANSION B, GOOD AIR ENTRY B ABD: SOFT, NTND, GBS, NO REBOUND OR GUARDING EXT/SKIN: NO SIGNIFICANT EDEMA OR RASH MSK: FROM X 4 EXTREMITIES with equal strength NEURO: CN 2-12 GROSSLY INTACT except left inferior visual d/o, NO new FOCAL DEFICITS PSY: CALM - Constitutional Vitals: Temp Pulse Resp BP Pulse Ox 98.0 F 86 18 142/95 95 05/01/17 12:35 05/01/17 12:35 05/01/17 12:35 05/01/17 12:35 05/01/17 12:35 Plan Activity: no driving until cleared by PCP, other (no strenous activites until cleared by PCP. ) Diet: low salt Special Instructions: record blood sugar diary (especially morning fasting blood sugars and take results to PCP), physical therapy, occupational therapy Additional Instructions: See Brush Material Preparer, Dr. Jae Trujillo to place Event heart monitor Follow up with: PRIMARY CARE, [Primary Care Provider] - 7 Days RULA TRUJILLO MD [Staff Physician] - 7 Days ABIGAIL SHEARER MD [Staff Physician] - 7 Days Prescriptions: Rosuvastatin (Nf) [Crestor] 20 mg PO QHS #30 tablet Aspirin [Aspirin TAB] 325 mg PO QDAY #30 tablet
[2017-05-01] MEDS: ASPIRIN PO SCH (14:44)
[2017-05-01] MEDS: TYLENOL PO PRN (14:56)
== END 2017-05-01 15:40 | disposition home health service (06) | DRG 65 ==
LOC: ED 10:08 → 4A 11:26
PROVIDERS: ADMIT Internal Medicine; ATTEND Internal Medicine
DX: I63.9 Cerebral infarction, unspecified (principal); I16.1 Hypertensive emergency; I10 Essential (primary) hypertension; H53.47 Heteronymous bilateral field defects; E78.5 Hyperlipidemia, unspecified; F17.200 Nicotine dependence, unspecified, uncomplicated; Z71.6 Tobacco abuse counseling
CPT/HCPCS: 36415; 70450; 70544; 70551; 80048; 80061; 80307; 81001; 82962; 84484; 85025; 85610; 85670; 85730; 93005; 93010; 93306; 93880; 96374; G8987-GO; G8988-GO; G8989-GO

== ENCOUNTER 2017-06-30 11:25 | Inpatient (IN) | payer MEDICARE ==
[2017-06-30 12:59] LABS: Basophils % (Auto) 0.5 % (0.0-1.8); Eosinophils % (Auto) 0.2 % (0.0-4.3); Hematocrit 51.9 % (35.5-45.6); Hemoglobin 17.1 gm/dl (11.8-15.2); Mean Corpuscular HGB Conc 33 % (32-34); Mean Corpuscular Hemoglobin 29 pg (28-32); Mean Corpuscular Volume 88 fl (84-94); Platelet Count 201 K/mm3 (140-440); White Blood Count 11.4 K/mm3 (4.5-11.0)
[2017-06-30 13:17] LABS: Anion Gap 21 mmol/L; BUN/Creatinine Ratio 21.25; Blood Urea Nitrogen 17 mg/dL (9-20); Calcium 9.6 mg/dL (8.4-10.2); Carbon Dioxide 21 mmol/L (22-30); Chloride 96.6 mmol/L (98-107); Glucose 184 mg/dL (75-100); Potassium 4.8 mmol/L (3.6-5.0); Sodium 134 mmol/L (137-145)
--- NOTE | 2017-06-30 13:35 | Emergency Department Report ---
- General Chief complaint: Weakness Stated complaint: DIZZINESS Time Seen by Provider: 06/30/17 13:21 Source: patient, RN notes reviewed, old records reviewed Mode of arrival: Wheelchair Limitations: Physical Limitation - History of Present Illness MD Complaint: generalized weakness -: days(s) (worse since last pm at 8p) Location: generalized Severity: moderate Consistency: intermittent Improves with: none Worsens with: none Associated Symptoms: denies other symptoms, nausea/vomiting, other (dizzy). denies: chest pain, confusion, dark stools, diaphoresis, dysuria, easy bruising , fever/chills, headaches, loss of appetite, myalgias, rash, shortness of breath , syncope - Related Data Previous Rx's Medication Instructions Recorded Last Taken Type Aspirin [Aspirin TAB] 325 mg PO QDAY #30 tablet 05/01/17 Unknown Rx Rosuvastatin (Nf) [Crestor] 20 mg PO QHS #30 tablet 05/01/17 Unknown Rx Allergies Allergy/AdvReac Type Severity Reaction Status Date / Time No Known Allergies Allergy Verified 04/29/17 10:20 ED Review of Systems ROS: Stated complaint: DIZZINESS Other details as noted in HPI Comment: Unobtainable due to pts medical conditions Constitutional: no symptoms reported, see HPI, malaise, weakness. denies: chills, diaphoresis, fever Eyes: as per HPI. denies: eye pain, eye discharge, vision change ENT: as per HPI. denies: ear pain, throat pain Respiratory: no symptoms reported, see HPI. denies: cough, orthopnea Cardiovascular: as per HPI, syncope (dizzy). denies: chest pain, palpitations, dyspnea on exertion, orthopnea Endocrine: no symptoms reported, see HPI. denies: excessive sweating, flushing , intolerance to cold, intolerance to heat Gastrointestinal: as per HPI, nausea. denies: abdominal pain, vomiting Genitourinary: as per HPI. denies: urgency, dysuria Musculoskeletal: as per HPI. denies: back pain Skin: as per HPI. denies: rash, lesions Neurological: as per HPI. denies: headache, weakness, numbness, paresthesias, confusion, abnormal gait, vertigo Psychiatric: as per HPI. denies: anxiety, depression Hematological/Lymphatic: as per HPI. denies: easy bleeding ED Past Medical Hx - Past Medical History Previous Medical History?: No Hx CVA: Yes Hx Heart Attack/AMI: No Hx Congestive Heart Failure: No Hx Diabetes: No Hx Deep Vein Thrombosis: No Hx Pulmonary Embolism: No Hx GERD: No Hx Liver Disease: No Hx Renal Disease: No Hx of Cancer: No Hx Sickle Cell Disease: No Hx Arthritis: No Hx Headaches / Migraines: No Hx Seizures: No Hx Kidney Stones: No Hx Psychiatric Treatment: No Hx Asthma: No Hx COPD: No Hx Tuberculosis: No Hx Dementia: No Hx HIV: No - Surgical History Past Surgical History?: No - Family History Family history: no significant - Social History Smoking Status: Current Every Day Smoker Substance Use Type: Other (etoh) - Medications Home Medications: Home Medications Medication Instructions Recorded Confirmed Last Taken Type Aspirin [Aspirin TAB] 325 mg PO QDAY #30 tablet 05/01/17 Unknown Rx Rosuvastatin (Nf) [Crestor] 20 mg PO QHS #30 tablet 05/01/17 Unknown Rx ED Physical Exam - General Limitations: No Limitations, Physical Limitation General appearance: alert, other (weak appearing) - Head Head exam: Present: atraumatic - Eye Eye exam: Present: PERRL, EOMI - ENT ENT exam: Present: mucous membranes dry - Neck Neck exam: Present: normal inspection. Absent: tenderness, meningismus - Respiratory Respiratory exam: Present: normal lung sounds bilaterally. Absent: respiratory distress, wheezes, rales, rhonchi, stridor, chest wall tenderness, accessory muscle use, decreased breath sounds, prolonged expiratory - Cardiovascular Cardiovascular Exam: Present: regular rate, normal rhythm - GI/Abdominal GI/Abdominal exam: Present: soft - Rectal Rectal exam: Present: deferred - exam: Present: normal inspection External exam: Present: normal external exam - Extremities Exam Extremities exam: Present: normal inspection, full ROM, normal capillary refill. Absent: tenderness, pedal edema, joint swelling - Back Exam Back exam: Present: normal inspection, full ROM. Absent: tenderness, CVA tenderness (R), CVA tenderness (L) - Neurological Exam Neurological exam: Present: alert, oriented X3, CN II-XII intact. Absent: normal gait (weak generaliz) - Expanded Neurological Exam Expanded Patient oriented to: Present: person, place, time Cranial nerves: EOM's Intact: Normal, Gag Reflex: Normal, Tongue Deviation: Normal, Nystagmus: Normal, Facial Sensation: Normal, Facial Palsy with Forehead Movement: Normal, Facial Palsy without Forehead Movement: Normal Cerebellar function: Finger to Nose: Normal Motor strength exam: RUE: 4, LUE: 4, RLE: 4, LLE: 4 Best Eye Response ([place]): (4) open spontaneously Best Motor Response ([place]): (6) obeys commands Best Verbal Response ([place]): (5) oriented [place]mair Total: 15 - Psychiatric Psychiatric exam: Present: depressed. Absent: normal affect (flat) - Skin Skin exam: Present: warm, dry - Level of Consciousness 1a. Level of Consciousness: alert - LOC Questions 1b. LOC Questions: answers correctly - LOC Command 1c. LOC Commands: performs tasks correctly - Best Gaze 2. Best Gaze: normal - Visual 3. Visual: no visual loss - Facial Palsy 4. Facial Palsy: normal symmetrical movement - Motor Arm 5b. Motor Arm Right: no drift 5a. Motor Arm Left: no drift - Motor Leg 6a. Motor Leg Left: no drift 6b. Motor Leg Right: no drift - Sensory 8. Sensory: normal - Best Language 9. Best Language: no aphasia - Dysarthria 10. Dysarthria: normal - Extinction and Inattention 11. Extinction/Inattention: no abnormality ED Course Vital Signs 06/30/17 06/30/17 06/30/17 11:32 13:04 13:15 Temperature 98 F Pulse Rate 87 84 Respiratory 16 16 17 Rate Blood Pressure 155/96 147/85 O2 Sat by Pulse 100 Oximetry - Reevaluation(s) Reevaluation #1: 06/30/17 15:39 to er today w weakness pt states so weak he can not walk. no focal neuro def no pronotor moves lower ext against resis. cn intact vss no cp no sob cva 2 m ago hx htn on no meds no allergies lives w fam cig and etoh labs ordered no fever no cough no dysuria no abd pain flat depressed stroke like affect cva 2 m ago Reevaluation #2: 06/30/17 15:[address] Crystal notified of admit ro subacute cva pt w generalized weakness no fever ill appearing pt updated reexam unchanged no focal neuro def bp 136/88 ED Medical Decision Making - Lab Data Result diagrams: 06/30/17 12:37 06/30/17 12:37 - EKG Data When compared to previous EKG there are: no significant change - Radiology Data Radiology results: report reviewed, image reviewed chest nap - Medical Decision Making ct noted hx cva 2 m ago admit - Differential Diagnosis ro tia/cva; generalized weakness Critical care attestation.: If time is entered above; I have spent that time in minutes in the direct care of this critically ill patient, excluding procedure time. ED Disposition Clinical Impression: Weakness Disposition: DC-09 OP ADMIT IP TO THIS HOSP Is pt being admited?: Yes Does the pt Need Aspirin: No Condition: Stable Time of Disposition: 15:44
[2017-06-30 14:31] LABS: INR 0.97 (0.87-1.13)
[2017-06-30 14:32] LABS: Partial Thromboplastin Time 25.9 Sec. (24.2-36.6)
--- NOTE | 2017-06-30 15:03 | Cat Scan Report ---
FINAL REPORT PROCEDURE: CT HEAD/BRAIN WO CON TECHNIQUE: Computerized tomography of the head was performed without contrast material. Tiny tract HISTORY: WEAK HX CVA 2 M AGO COMPARISON: No prior studies are available for comparison. FINDINGS: Mild changes of chronic sinusitis are seen. Calcifications are seen in the distal vertebral arteries and ICAs. Visualized portions of the mastoid air cells are clear. No calvarial fracture is seen. Old lacunar infarct is seen in the left cerebellar hemisphere. In the right cerebellar hemisphere there is an ovoid hypodense area measuring 1.6 cm in greatest dimension. This be more recent or chronic CVA. Old lacunar infarct is seen in the left thalamus. Likely mild encephalomalacia is seen in both parietal lobes that may be from old CVA. No acute intracranial hemorrhage or mass effect is seen. IMPRESSION: Old small parietal CVA are seen with old lacunar infarcts in the left cerebellar hemisphere and left thalamus. Subacute to chronic small CVA is suspected in the right cerebellar hemisphere.
[2017-06-30] MEDS ORDERED: ZOFRAN IV PRN (16:38)
[2017-06-30] MEDS ORDERED: TYLENOL PO PRN (16:38)
[2017-06-30] MEDS ORDERED: SODIUM CHLORIDE FLUSH SYRINGE 10 ML IV PRN (16:38)
[2017-06-30] MEDS ORDERED: DULCOLAX PR PRN (16:38)
[2017-06-30 16:54] LABS: Alanine Aminotransferase 14 units/L (7-56); Albumin 4.4 g/dL (3.9-5); Albumin/Globulin Ratio 1.2 %; Alkaline Phosphatase 81 units/L (35-129); Total Protein 8.2 g/dL (6.3-8.2)
[2017-06-30 17:04] LABS: Bilirubin,Direct < 0.2 mg/dL (0-0.2); Bilirubin,Indirect 0.3 mg/dL
[2017-06-30] MEDS ORDERED: ASPIRIN ONE (17:50)
[2017-06-30] MEDS ORDERED: PLAVIX ONE (17:50)
[2017-06-30] MEDS: PLAVIX PO SCH (17:52)
[2017-06-30] MEDS: ASPIRIN PO SCH (17:56)
--- NOTE | 2017-06-30 19:58 | History and Physical Report ---
History of Present Illness Date of admission: 06/30/17 18:34 Chief complaint: I feel weak and dizzy History of present illness: 67 YO Male with Nicotine Dependence, CAV presents to ED for evaluation. Pt states that he has been feeling weak and dizzy and blurred vision for the past 2 days with worsening symptoms that started about 2000hrs on the day prior to admission. Pt denies sudden loss of vision, fever, chills, CP, Palpitations, NVD , syncope, productive cough, BRBPR, recent ill contacts, medication noncompliance, trauma, hematuria, dysuria, unintentional weight loss, night sweats, or recent ill contacts. Past History Past Medical History: stroke Past Surgical History: No surgical history, Other (reviewed) Social history: , lives with family, smoking. denies: alcohol abuse, prescription drug abuse, IV drug use Family history: hypertension Medications and Allergies Allergies Allergy/AdvReac Type Severity Reaction Status Date / Time No Known Allergies Allergy Verified 04/29/17 10:20 Home Medications Medication Instructions Recorded Confirmed Last Taken Type Aspirin [Aspirin TAB] 325 mg PO QDAY #30 tablet 05/01/17 Unknown Rx Rosuvastatin (Nf) [Crestor] 20 mg PO QHS #30 tablet 05/01/17 Unknown Rx Active Meds: Active Medications Acetaminophen (Tylenol) 650 mg PO Q4H PRN PRN Reason: Pain, Mild (1-3) Aspirin (Aspirin) 325 mg PO QDAY [facility] Last Admin: 06/30/17 17:56 Dose: 325 mg Bisacodyl (Dulcolax) 10 mg [place] QDAY PRN PRN Reason: Constipation Clopidogrel Bisulfate (Plavix) 75 mg PO QDAY [facility] Last Admin: 06/30/17 17:52 Dose: 75 mg Sodium Chloride (Nacl 0.9% 1000 Ml) 1,000 mls @ 125 mls/hr IV DIRECT [facility] Ondansetron HCl (Zofran) 4 mg IV Q8H PRN PRN Reason: N/V unrelieved by Reglan Simvastatin (Zocor) 20 mg PO QHS [facility] Sodium Chloride (Sodium Chloride Flush Syringe 10 Ml) 10 ml IV PRN PRN PRN Reason: LINE FLUSH Review of Systems Constitutional: weakness, no weight loss, no weight gain Eyes: bilateral: blurred vision Ears, nose, mouth and throat: no ear pain, no ear discharge, no tinnitis, no decreased hearing, no nose pain Cardiovascular: no chest pain, no orthopnea, no palpitations, no rapid/ irregular heart beat Respiratory: no cough, no cough with sputum, no excessive sputum, no hemoptysis Gastrointestinal: no abdominal pain, no nausea, no vomiting, no diarrhea, no constipation Genitourinary Male: no dysuria, no hematuria, no flank pain, no discharge, no urinary frequency Rectal: no pain, no incontinence, no bleeding Musculoskeletal: no neck stiffness, no neck pain, no shooting arm pain, no arm numbness/tingling, no low back pain Integumentary: no rash, no pruritis, no redness, no sores, no wounds, no jaundice Neurological: weakness, change in speech, no transient paralysis, no paralysis, no parathesias, no numbness, no tingling, no seizures Psychiatric: no anxiety, no memory loss, no change in sleep habits, no sleep disturbances, no insomnia, no hypersomnia, no change in appetite Endocrine: no cold intolerance, no heat intolerance, no polyphagia, no excessive thirst, no polydipsia, no polyuria, no nocturia Hematologic/Lymphatic: no easy bruising, no easy bleeding Allergic/Immunologic: no urticaria, no allergic rhinitis, no wheezing Exam - Constitutional Vitals: Temp Pulse Resp BP Pulse Ox 98 F 84 16 153/76 96 06/30/17 11:32 06/30/17 19:15 06/30/17 19:15 06/30/17 19:15 06/30/17 16:39 General appearance: Present: mild distress - EENT Eyes: Present: PERRL ENT: hearing intact, clear oral mucosa - Neck Neck: Present: supple, normal ROM - Respiratory Respiratory effort: normal Respiratory: bilateral: CTA - Cardiovascular Heart Sounds: Present: S1 & S2. Absent: rub, click - Extremities Extremities: pulses symmetrical, No edema - Abdominal General gastrointestinal: Present: soft, non-tender, non-distended, normal bowel sounds Male genitourinary: Present: normal - Integumentary Integumentary: Present: clear, warm, dry - Musculoskeletal Musculoskeletal: generalized weakness - Psychiatric Psychiatric: memory intact, cooperative - Neurologic Neurologic: no CNII-XII intact, focal deficits, no moves all extremities, no gait normal Results - Labs CBC & Chem 7: 06/30/17 12:37 06/30/17 12:37 Assessment and Plan - Patient Problems (1) CVA (cerebral vascular accident) Current Visit: Yes Status: Acute Qualifiers: CVA mechanism: C Precerebral and cerebral artery: P Laterality of affected vessel: L Plan to address problem: Stroke protocol: DAPT, Pt outside therapeutic window for TPA, CT Head, MRI/MRA, PT, OT, Speech therapy, Pt underwent Echo/Carotid Doppler in 04/30. Results reviewed. Normal Echo, Doppler showed no significant stenosis. (2) Accelerated hypertension Current Visit: Yes Status: Acute Plan to address problem: monitor bp q shift, permissive HTN overnight. goal systolic between 165-185 (3) Nicotine dependence Current Visit: Yes Status: Acute Qualifiers: Nicotine product type: N Substance use status: S Plan to address problem: supportive care, no quit date at this time. (4) DVT prophylaxis Current Visit: Yes Status: Acute
[2017-06-30] MEDS ORDERED: NON-FORMULARY (Rosuvastatin (Nf) 20 MG) PO SCH (22:00)
[2017-06-30] MEDS: ZOCOR PO SCH (23:37)
[2017-07-01] MEDS ORDERED: HALDOL IV PRN (01:27)
[2017-07-01] MEDS ORDERED: ATIVAN IV PRN ×3 (01:27)
[2017-07-01 03:08] LABS: Bilirubin,Urine NEG (Negative); Blood,Urine SM (Negative); Ketones,Urine TR mg/dL (Negative); Leukocyte Esterase,Urine NEG (Negative); Mucus,Urine 3+ /HPF; Nitrite,Urine NEG (Negative); Urobilinogen,Urine < 2.0 mg/dL (<2.0)
[2017-07-01] MEDS: NACL 0.9% 1000 ML 1,000 ML IV SCH ×3 (05:15→23:10)
--- NOTE | 2017-07-01 10:04 | XRay Report ---
ROUTINE CHEST, TWO VIEWS: HISTORY: Weakness, shortness of breath. The trachea, heart, mediastinal contour, lung camejo and bony thorax are unremarkable. IMPRESSION: Unremarkable chest x-ray.
--- NOTE | 2017-07-01 10:12 | Progress Note ---
Assessment and Plan Assessment and plan: 67 YO Male with Nicotine Dependence, htn, etoh dependence who came to ED with feeling weak and dizzy and blurred vision for the past 2 days with worsening symptoms that started about 2000hrs on the day prior to admission. Also noted to have altered mental status CVA (cerebral vascular accident) with infarct CT head shows subacute small CVA in the right cerebellar hemisphere * Stroke protocol: DAPT, Pt outside therapeutic window for TPA, CT Head, MRI/MRA , PT, OT, Speech therapy, Pt underwent Echo/Carotid Doppler in 04/30. Results reviewed. Normal Echo, Doppler showed no significant stenosis. -LDL is 122, started on statin Accelerated hypertension monitor bp q shift, permissive HTN overnight. goal systolic between 165-185 Nicotine dependence supportive care, no quit date at this time. Etoh withdrawal * continue CIWA protocol Metabolic encephalopathy * Continue supportive care, check ammonia level, UA and chest x-ray were negative * likely due to etoh withdrawal, continue CIWA protocol History Interval history: Mental status has not improved, patient remains confused and incoherent Hospitalist Physical - Physical exam Narrative exam: General.: Appears well, no distress, nontoxic HEENT: Moist mucous membranes, extraocular muscles intact, no lymphadenopathy Neck: supple Cardiac: S1-S2 heard Lungs: clear to auscultation bilaterally Abdomen: soft , nontender, nondistended, bowel sounds positive Extremities: no edema clubbing or cyanosis Skin: no rash or lesions Neurologic: Moves all extremities, patient is confused, he is mumbling incoherently and pointing across her room but there is no one there - Constitutional Vitals: Temp Pulse Resp BP Pulse Ox 98.4 F 102 H 16 157/95 96 07/01/17 05:11 07/01/17 07:57 07/01/17 05:11 07/01/17 05:11 07/01/17 05:11 General appearance: Present: disheveled Results - Labs CBC & Chem 7: 06/30/17 12:37 06/30/17 12:37 Labs: Laboratory Last Values WBC 11.4 K/mm3 (4.5-11.0) H 06/30/17 12:37 RBC 5.90 M/mm3 (3.65-5.03) H 06/30/17 12:37 Hgb 17.1 gm/dl (11.8-15.2) H 06/30/17 12:37 Hct 51.9 % (35.5-45.6) H 06/30/17 12:37 MCV 88 fl (84-94) 06/30/17 12:37 MCH 29 pg (28-32) 06/30/17 12:37 MCHC 33 % (32-34) 06/30/17 12:37 RDW 14.0 % (13.2-15.2) 06/30/17 12:37 Plt Count 201 K/mm3 (140-440) 06/30/17 12:37 Lymph % (Auto) 18.4 % (13.4-35.0) 06/30/17 12:37 [place] % (Auto) 3.3 % (0.0-7.3) 06/30/17 12:37 Eos % (Auto) 0.2 % (0.0-4.3) 06/30/17 12:37 Baso % (Auto) 0.5 % (0.0-1.8) 06/30/17 12:37 Lymph # 2.1 K/mm3 (1.2-5.4) 06/30/17 12:37 [place] # 0.4 K/mm3 (0.0-0.8) 06/30/17 12:37 Eos # 0.0 K/mm3 (0.0-0.4) 06/30/17 12:37 Baso # 0.1 K/mm3 (0.0-0.1) 06/30/17 12:37 Seg Neutrophils % 77.6 % (40.0-70.0) H 06/30/17 12:37 Seg Neutrophils # 8.8 K/mm3 (1.8-7.7) H 06/30/17 12:37 PT 13.4 Sec. (12.2-14.9) 06/30/17 13:31 INR 0.97 (0.87-1.13) 06/30/17 13:31 APTT 25.9 Sec. (24.2-36.6) 06/30/17 13:31 Sodium 134 mmol/L (137-145) L 06/30/17 12:37 Potassium 4.8 mmol/L (3.6-5.0) 06/30/17 12:37 Chloride 96.6 mmol/L (98-107) L 06/30/17 12:37 Carbon Dioxide 21 mmol/L (22-30) L 06/30/17 12:37 Anion Gap 21 mmol/L 06/30/17 12:37 BUN 17 mg/dL (9-20) 06/30/17 12:37 Creatinine 0.8 mg/dL (0.8-1.5) 06/30/17 12:37 Estimated GFR > 60 ml/min 06/30/17 12:37 BUN/Creatinine Ratio 21.25 % 06/30/17 12:37 Glucose 184 mg/dL (75-100) H 06/30/17 12:37 Calcium 9.6 mg/dL (8.4-10.2) 06/30/17 12:37 Total Bilirubin 0.50 mg/dL (0.1-1.2) 06/30/17 16:12 Direct Bilirubin < 0.2 mg/dL (0-0.2) 06/30/17 16:12 Indirect Bilirubin 0.3 mg/dL 06/30/17 16:12 AST 14 units/L (5-40) 06/30/17 16:12 ALT 14 units/L (7-56) 06/30/17 16:12 Alkaline Phosphatase 81 units/L (35-129) 06/30/17 16:12 Troponin T < 0.010 ng/mL (0.00-0.029) 06/30/17 Unknown Total Protein 8.2 g/dL (6.3-8.2) 06/30/17 16:12 Albumin 4.4 g/dL (3.9-5) 06/30/17 16:12 Albumin/Globulin Ratio 1.2 % 06/30/17 16:12 Triglycerides 69 mg/dL (2-149) 07/01/17 05:07 Cholesterol 193 mg/dL (50-199) 07/01/17 05:07 LDL Cholesterol Direct 122 mg/dL (50-130) 07/01/17 05:07 HDL Cholesterol 58 mg/dL (40-59) 07/01/17 05:07 Cholesterol/HDL Ratio 3.32 % 07/01/17 05:07 TSH 0.753 mlU/mL (0.270-4.200) 06/30/17 16:12 Urine Color Yellow (Yellow) 06/30/17 02:40 Urine Turbidity Clear (Clear) 06/30/17 02:40 Urine pH 5.0 (5.0-7.0) 06/30/17 02:40 Ur Specific [place] 1.026 (1.003-1.030) 06/30/17 02:40 Urine Protein 30 mg/dl mg/dL (Negative) 06/30/17 02:40 Urine Glucose (UA) 50 mg/dL (Negative) 06/30/17 02:40 Urine Ketones Tr mg/dL (Negative) 06/30/17 02:40 Urine Blood Sm (Negative) 06/30/17 02:40 Urine Nitrite Neg (Negative) 06/30/17 02:40 Urine Bilirubin Neg (Negative) 06/30/17 02:40 Urine Urobilinogen < 2.0 mg/dL (<2.0) 06/30/17 02:40 Ur Leukocyte Esterase Neg (Negative) 06/30/17 02:40 Urine WBC (Auto) 2.0 /HPF (0.0-6.0) 06/30/17 02:40 Urine RBC (Auto) 9.0 /HPF (0.0-6.0) 06/30/17 02:40 U Epithel Cells (Auto) < 1.0 /HPF (0-13.0) 06/30/17 02:40 Amorphous Crystals 2+ 06/30/17 02:40 Hyaline Casts 5 /LPF 06/30/17 02:40 Urine Mucus 3+ /HPF 06/30/17 02:40
[2017-07-01] MEDS ORDERED: Fluarix Quad 2017-2018(36 MOS+) IM ONE (12:00)
[2017-07-01] MEDS ORDERED: PNEUMOVAX 23 IM ONE (12:00)
[2017-07-01] MEDS: ASPIRIN PO SCH (12:11)
[2017-07-01] MEDS: PLAVIX PO SCH (12:12)
[2017-07-01] MEDS ORDERED: ATIVAN IV NR (13:00)
--- NOTE | 2017-07-01 15:05 | Magnetic Resonance Report ---
FINAL REPORT PROCEDURE: MR MRA/MRV HEAD WO CON TECHNIQUE: Unenhanced 3D [id number] images of the vessels of the [place] are obtained HISTORY: stroke COMPARISON: No prior studies are available for comparison. FINDINGS: No definite flow is seen in the distal left vertebral artery. This could be due to subtotal or total occlusion. There is focal loss of signal in 2 regions of the the distal right vertebral artery. These may be due to high-grade stenosis. Anterior communicating artery is seen. Left A1 segment is small which is probably normal variant appearance. However, it is not well seen at its origin and could have significant atherosclerotic narrowing at the origin. There is likely greater than 50 percent narrowing of the distal left ICA near its bifurcation. Possible 50 percent stenosis is seen in the cavernous portion of the left ICA. Likely 60-70 percent stenosis is seen in the cavernous right ICA with possible 50 percent stenosis in the supraclinoid portion of the distal right ICA. 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 Likely hemodynamically significant stenoses are seen in the distal ICAs and origin of the left A1 segment. Further evaluation with conventional angiography or CTA is recommended to better evaluate high-grade stenoses and areas of possible occlusion.
--- NOTE | 2017-07-01 15:13 | Magnetic Resonance Report ---
FINAL REPORT PROCEDURE: MR BRAIN WO CON TECHNIQUE: Magnetic resonance imaging of the brain was performed without contrast material. HISTORY: stroke COMPARISON: Head CT from the previous day FINDINGS: Cerebellar tonsils are normally positioned. Areas of restricted diffusion are seen scattered throughout the cerebellar hemispheres, left greater than right. There is involvement of the left superior cerebellar peduncle. Restricted diffusion is seen in the left side of the [place]ather. Punctate focus of restricted diffusion is seen in the right thalamus. Most of these areas have increased T2 signal, with only very mild increased T2 signal seen in the left side of the [place]ather, suggesting it is acute CVA. Areas of chronic ischemic change are suspected in the right side of the [place]ather and periventricular white matter. Likely thrombus is seen in the basilar artery and left vertebral artery suggesting occlusion. No areas of significant mass effect or intracranial hemorrhage are seen. There may be mild laminar necrosis in the right occipital lobe. IMPRESSION: There is likely occlusion of the left vertebral artery and basilar artery. Multiple recent strokes are seen in the cerebellar hemispheres. Acute CVA is suspect in the left side of the [place]ather. Critical results of this study and MRA brain study were discussed with Dr. Crystal at 3:08 p.m. Eastern time on July 01, 2017.
--- NOTE | 2017-07-01 16:01 | Cat Scan Report ---
FINAL REPORT PROCEDURE: CT HEAD/BRAIN WO CON TECHNIQUE: Computerized tomography of the head was performed without contrast material. HISTORY: altered mental status CVA COMPARISON: MRI from the same day and CT exam from previous day FINDINGS: Minimal mucosal thickening is seen in the paranasal sinuses. Calcifications are seen in the distal ICAs and distal vertebral arteries. The cerebellar infarcts and left sided pontine infarct are present as seen on CT study. Small focus of dense thrombus is seen in the basilar tip. Cerebral ventricles are normal in size. Old lacunar infarct is seen in the left thalamus with developing recent lacunar infarct in the right thalamus. No acute intracranial hemorrhage or mass effect is seen. Mild encephalomalacia is seen in the bilateral lower parietal or occipital lobes that may be due to old ischemic changes. Likely laminar necrosis is seen on MRI in the right occipital parietal region today. IMPRESSION: Cerebellar, left pontine, and thalamic CVA are similar to recent MRI exam from earlier the same day. No hemorrhagic transformation or significant mass effect is seen.
[2017-07-01] MEDS: ZOCOR PO SCH (22:00)
[2017-07-02] MEDS: NACL 0.9% 1000 ML 1,000 ML IV SCH (06:04)
--- NOTE | 2017-07-02 08:43 | Progress Note ---
Assessment and Plan Assessment and plan: 67 YO Male with Nicotine Dependence, htn, etoh dependence who came to ED with feeling weak and dizzy and blurred vision for the past 2 days with worsening symptoms that started about 2000hrs on the day prior to admission. Also noted to have altered mental status CVA (cerebral vascular accident) with infarct CT and MR brain show acute CVA, MRA was suboptimal, will obtain CTA head and Neck * Stroke protocol: Pt underwent Echo/Carotid Doppler in 04/30. Results reviewed. Normal Echo, Doppler showed no significant stenosis. -LDL is 122, will put on statin if able to place an NG tube MRA brain, image reviewed, probable occlusion of the basilar artery and left vertebral artery as seen with possible some total stenosis of the distal right vertebral artery MRI brain, image reviewed, multiple recent strokes are seen in the cerebellar hemispheres, acute CVA is suspected the left side of the [place]ather. Accelerated hypertension continue to allow permissive htn, to maximize intracranial perfusion Nicotine dependence supportive care, no quit date at this time. Etoh withdrawal * continue CIWA protocol Metabolic encephalopathy * Was likely due to acute CVA, Continue supportive care, ammonia level within normal limits, UA and chest x-ray were negative * likely due to etoh withdrawal, continue CIWA protocol Dysphasia/aphasia * Due to acute stroke, keep nothing by mouth, place NG tube The plan was discussed with his , his prognosis is poor given extensive CVA History Interval history: Mental status has not improved, patient remains confused and incoherent Hospitalist Physical - Physical exam Narrative exam: General.: Appears well, no distress, nontoxic HEENT: Moist mucous membranes, extraocular muscles intact, no lymphadenopathy Neck: supple Cardiac: S1-S2 heard Lungs: clear to auscultation bilaterally Abdomen: soft , nontender, nondistended, bowel sounds positive Extremities: no edema clubbing or cyanosis Skin: no rash or lesions Neurologic: Moves only the left side of his body extremities, patient is confused, he is mumbling incoherently and pointing across her room but there is no one there, Right hemiparesis, he does not obey commands - Constitutional Vitals: Temp Pulse Resp BP Pulse Ox 97.5 F L 116 H 18 177/90 97 07/02/17 06:13 07/01/17 23:34 07/02/17 06:13 07/02/17 06:13 07/01/17 20:04 General appearance: Present: disheveled Results - Labs CBC & Chem 7: 07/02/17 16:09 07/02/17 16:09 Labs: Laboratory Last Values WBC 11.4 K/mm3 (4.5-11.0) H 06/30/17 12:37 RBC 5.90 M/mm3 (3.65-5.03) H 06/30/17 12:37 Hgb 17.1 gm/dl (11.8-15.2) H 06/30/17 12:37 Hct 51.9 % (35.5-45.6) H 06/30/17 12:37 MCV 88 fl (84-94) 06/30/17 12:37 MCH 29 pg (28-32) 06/30/17 12:37 MCHC 33 % (32-34) 06/30/17 12:37 RDW 14.0 % (13.2-15.2) 06/30/17 12:37 Plt Count 201 K/mm3 (140-440) 06/30/17 12:37 Lymph % (Auto) 18.4 % (13.4-35.0) 06/30/17 12:37 [place] % (Auto) 3.3 % (0.0-7.3) 06/30/17 12:37 Eos % (Auto) 0.2 % (0.0-4.3) 06/30/17 12:37 Baso % (Auto) 0.5 % (0.0-1.8) 06/30/17 12:37 Lymph # 2.1 K/mm3 (1.2-5.4) 06/30/17 12:37 [place] # 0.4 K/mm3 (0.0-0.8) 06/30/17 12:37 Eos # 0.0 K/mm3 (0.0-0.4) 06/30/17 12:37 Baso # 0.1 K/mm3 (0.0-0.1) 06/30/17 12:37 Seg Neutrophils % 77.6 % (40.0-70.0) H 06/30/17 12:37 Seg Neutrophils # 8.8 K/mm3 (1.8-7.7) H 06/30/17 12:37 PT 13.4 Sec. (12.2-14.9) 06/30/17 13:31 INR 0.97 (0.87-1.13) 06/30/17 13:31 APTT 25.9 Sec. (24.2-36.6) 06/30/17 13:31 Sodium 134 mmol/L (137-145) L 06/30/17 12:37 Potassium 4.8 mmol/L (3.6-5.0) 06/30/17 12:37 Chloride 96.6 mmol/L (98-107) L 06/30/17 12:37 Carbon Dioxide 21 mmol/L (22-30) L 06/30/17 12:37 Anion Gap 21 mmol/L 06/30/17 12:37 BUN 17 mg/dL (9-20) 06/30/17 12:37 Creatinine 0.8 mg/dL (0.8-1.5) 06/30/17 12:37 Estimated GFR > 60 ml/min 06/30/17 12:37 BUN/Creatinine Ratio 21.25 % 06/30/17 12:37 Glucose 184 mg/dL (75-100) H 06/30/17 12:37 POC Glucose 79 (70-105) 07/02/17 08:15 Calcium 9.6 mg/dL (8.4-10.2) 06/30/17 12:37 Total Bilirubin 0.50 mg/dL (0.1-1.2) 06/30/17 16:12 Direct Bilirubin < 0.2 mg/dL (0-0.2) 06/30/17 16:12 Indirect Bilirubin 0.3 mg/dL 06/30/17 16:12 AST 14 units/L (5-40) 06/30/17 16:12 ALT 14 units/L (7-56) 06/30/17 16:12 Alkaline Phosphatase 81 units/L (35-129) 06/30/17 16:12 Ammonia 37.0 umol/L (25-60) 07/01/17 16:11 Troponin T < 0.010 ng/mL (0.00-0.029) 06/30/17 Unknown Total Protein 8.2 g/dL (6.3-8.2) 06/30/17 16:12 Albumin 4.4 g/dL (3.9-5) 06/30/17 16:12 Albumin/Globulin Ratio 1.2 % 06/30/17 16:12 Triglycerides 69 mg/dL (2-149) 07/01/17 05:07 Cholesterol 193 mg/dL (50-199) 07/01/17 05:07 LDL Cholesterol Direct 122 mg/dL (50-130) 07/01/17 05:07 HDL Cholesterol 58 mg/dL (40-59) 07/01/17 05:07 Cholesterol/HDL Ratio 3.32 % 07/01/17 05:07 TSH 0.753 mlU/mL (0.270-4.200) 06/30/17 16:12 Urine Color Yellow (Yellow) 06/30/17 02:40 Urine Turbidity Clear (Clear) 06/30/17 02:40 Urine pH 5.0 (5.0-7.0) 06/30/17 02:40 Ur Specific [place] 1.026 (1.003-1.030) 06/30/17 02:40 Urine Protein 30 mg/dl mg/dL (Negative) 06/30/17 02:40 Urine Glucose (UA) 50 mg/dL (Negative) 06/30/17 02:40 Urine Ketones Tr mg/dL (Negative) 06/30/17 02:40 Urine Blood Sm (Negative) 06/30/17 02:40 Urine Nitrite Neg (Negative) 06/30/17 02:40 Urine Bilirubin Neg (Negative) 06/30/17 02:40 Urine Urobilinogen < 2.0 mg/dL (<2.0) 06/30/17 02:40 Ur Leukocyte Esterase Neg (Negative) 06/30/17 02:40 Urine WBC (Auto) 2.0 /HPF (0.0-6.0) 06/30/17 02:40 Urine RBC (Auto) 9.0 /HPF (0.0-6.0) 06/30/17 02:40 U Epithel Cells (Auto) < 1.0 /HPF (0-13.0) 06/30/17 02:40 Amorphous Crystals 2+ 06/30/17 02:40 Hyaline Casts 5 /LPF 06/30/17 02:40 Urine Mucus 3+ /HPF 06/30/17 02:40
--- NOTE | 2017-07-02 09:28 | History and Physical Report ---
History of Present Illness Date of examination: 07/02/17 Date of admission: 06/30/17 18:34 Chief complaint: NEUROLOGY CONSULTATION NOTE : Hx reviewed in chart. Studies reviewed. Pt is extremely dysarthric and futher detailed hx is not possible. From chart, he experienced dizziness, and "generalized weakness" for the last day or so. ROS: not possible SH. FH not re-reviewed MEDS/ALLERGIES: see chart. Exam (positive findings): MS: He is alert, and despite extremely dsyarthic speech it can be ascertained that he is oriented x 3, follows commands quickly and accurately, ("show me two fingers with your left hand, lift your left leg, lift your right leg")) CN: the eyes are deviated somewhat to the right, he cannot look leftward, can look upward slightly and downward slightly, no nystagmus. Pupils 3 mm diam and both react to bright light stim. Left UMN facial deficit is present. Speech dysarthric, sparse, diffiucult to parse. Can protrude tongue slightly only, on cammand. MOT: right arm densely paretic with some increased tone. left arm normal 5/5 proximally and distally. can lift both legs against gravity on command. right leg 4/5 hip flexors, and left leg 5/5 to resistance testing. foot dorsiflexion 5 /5 left, 4/5 right SENS: denies loss to touch all four extremeities CEREB: no coop DTRs: 2+ and symmetric prox and dist all 4 extrem GAIT: not possible Neck: supple, no bruits Cor: no m, rubs, gallops Lungs: clear to a Abn: soft, nl Bowel snds Extem: no edema, no trauma MRI brain and MRA brain reviewed with radiol. Done 07/01/17 these show multiple DWI pos lesions in both cerebellar hemispheres , and in the left cerebral peduncle. MRA shows an signal in the left vertebral and throughout most of the basilar artery. An MRI two months earlier on 05/03/17 shows several acute DWI lesions in the cerebellar hemispheres bilaterally and also in the occiptial lobes on both sides. IMP: 1. Multiple Acute infarcts in the posterior circulation (vertebrobasilar system), affecting the cerebellar hemispheres on both sides, and the left cerebral peduncle, with right hemiparesis (arm>face>leg), failure of leftward gaze, and extremely dysarthric speech, ...secondary to near vs subtotal occlusion of the left vertebral and basilar arteries. 2. Antecedent hx of posterior circulation acute infarcts two mos ago my MRI. 3. Other dxs as per chart RECC: 1. Start anti-coag Rx now (Heparin drip IV) 2. Get head and neck CTA to futher delineate at higher resolution what arterial circulation we have got left to work with (re prognosis) 3. Get 2D echo if not already done 4. I have a page in for Dr Lundberg to discuss 5. Will call Angy Sotelo [phone] to update her. Mr Sotelo is obviously sererely ill and prognosis is guarded. He is alert, oriented, and can folllow complex commands quickly and accurately. Must keep his BLOOD PRESSURE UP ....AND keep him well hydrated to maximize cerebral circulation Jazlyn Guo MD, Neurology Past History Past Medical History: stroke Past Surgical History: No surgical history, Other (reviewed) Social history: , lives with family, smoking. denies: alcohol abuse, prescription drug abuse, IV drug use Family history: hypertension Medications and Allergies Allergies Allergy/AdvReac Type Severity Reaction Status Date / Time No Known Allergies Allergy Verified 04/29/17 10:20 Home Medications Medication Instructions Recorded Confirmed Last Taken Type Aspirin [Aspirin TAB] 325 mg PO QDAY #30 tablet 05/01/17 07/01/17 Unknown Rx Rosuvastatin (Nf) [Crestor] 20 mg PO QHS #30 tablet 05/01/17 07/01/17 Unknown Rx Active Meds: Active Medications Acetaminophen (Tylenol) 650 mg PO Q4H PRN PRN Reason: Pain, Mild (1-3) Aspirin (Aspirin) 325 mg PO QDAY [facility] Last Admin: 07/01/17 12:11 Dose: Not Given Bisacodyl (Dulcolax) 10 mg [place] QDAY PRN PRN Reason: Constipation Clopidogrel Bisulfate (Plavix) 75 mg PO QDAY [facility] Last Admin: 07/01/17 12:12 Dose: Not Given Haloperidol Lactate (Haldol) 5 mg IV Q1H PRN PRN Reason: Unrespon. to mult. doses BZD's Sodium Chloride (Nacl 0.9% 1000 Ml) 1,000 mls @ 125 mls/hr IV DIRECT BRITNEY Last Admin: 07/02/17 06:04 Dose: 125 mls/hr Lorazepam (Ativan) 2 mg IV Q1H PRN PRN Reason: CIWA-Ar 8-15 Lorazepam (Ativan) 4 mg IV Q1H PRN PRN Reason: CIWA-Ar 16-25 Lorazepam (Ativan) 4 mg IV Q15MIN PRN PRN Reason: CIWA-Ar >25 Stop: 07/06/17 01:28 Ondansetron HCl (Zofran) 4 mg IV Q8H PRN PRN Reason: N/V unrelieved by [facility] Last Admin: 06/30/17 21:22 Dose: 4 mg Simvastatin (Zocor) 20 mg PO QHS [facility] Last Admin: 07/01/17 22:00 Dose: Not Given Sodium Chloride (Sodium Chloride Flush Syringe 10 Ml) 10 ml IV PRN PRN PRN Reason: LINE FLUSH Physical Examination - Vital Signs Vital Signs: Vital Signs Temp Pulse Resp BP Pulse Ox 98 F 87 16 155/96 100 06/30/17 11:32 06/30/17 11:32 06/30/17 11:32 06/30/17 11:32 06/30/17 11:32 Results - Laboratory Findings CBC and BMP: 06/30/17 12:37 06/30/17 12:37
[2017-07-02] MEDS ORDERED: NACL ONE (11:09)
[2017-07-02] MEDS ORDERED: NORMODYNE IV PRN (13:05)
--- NOTE | 2017-07-02 15:16 | Cat Scan Report ---
CTA HEAD CTA NECK INDICATION: CVA. COMPARISON: Yesterday's MRI/MRA. FINDINGS: CTA of the head and neck performed following IV contrast. Multiplanar reconstructions, including post processing angiographic reformations obtained. CTA NECK: Patent aortic arch and major arising vessels with normal branching pattern. Few atherosclerotic calcifications of the aortic arch and proximal left subclavian artery. Patent bilateral common carotid arteries. Bilateral carotid bulb atherosclerotic calcifications also noted with mild, approximately 50% right proximal ICA stenosis as on axial image 265, series 2, amongst others. Patent imaged ECA branches. Bilateral vertebral arteries patent up to C1 level. Following their turn however, non-opacification of bilateral vertebral arteries distally about the foramen magnum noted as on axial images [id number], series 2. Bilateral vertebral artery calcifications along this extent also noted. Right vertebral artery distally appears to reconstitute as basilar artery as on axial images [id number], series 2, though gradually tapering as it heads cephalad and completely occluded distally for approximately 1.2 cm long segment at the [place], axial images [id number], series 2. CTA HEAD: Extensive bilateral ICA calcifications with approximately 80% left distal ICA stenosis at the origin of the left MCA suspected as on axial images [id number], series 2. Patent remainder imaged [place], MCA and [employer] branches. Intact calvarium. Normal eye globes. Mild right posterior ethmoid mucosal thickening. Bilateral maxillary and sphenoid sinus mucosal thickening or retention cysts as well. Slight frontoethmoid mucosal thickening as well. Slight nasal septal deviation. Clear temporal bone air cells with mastoid tips not pneumatized. Multilevel cervical vertebral body and facet degenerative spurring noted with preserved alignment. Few missing teeth. CONCLUSION: 1. Bilateral distal vertebral artery thrombosis/occlusion. Right distal vertebral/basilar artery thereafter recannulized, though again occludes distally at the [place], as detailed above. 2. Bilateral carotid bulb atherosclerotic changes with mild right proximal ICA stenosis. 3. Various other findings, as above. Thank you for the opportunity to participate in this patient's care.
--- NOTE | 2017-07-02 15:16 | Cat Scan Report ---
CTA HEAD CTA NECK INDICATION: CVA. COMPARISON: Yesterday's MRI/MRA. FINDINGS: CTA of the head and neck performed following IV contrast. Multiplanar reconstructions, including post processing angiographic reformations obtained. CTA NECK: Patent aortic arch and major arising vessels with normal branching pattern. Few atherosclerotic calcifications of the aortic arch and proximal left subclavian artery. Patent bilateral common carotid arteries. Bilateral carotid bulb atherosclerotic calcifications also noted with mild, approximately 50% right proximal ICA stenosis as on axial image 265, series 2, amongst others. Patent imaged ECA branches. Bilateral vertebral arteries patent up to C1 level. Following their turn however, non-opacification of bilateral vertebral arteries distally about the foramen magnum noted as on axial images [id number], series 2. Bilateral vertebral artery calcifications along this extent also noted. Right vertebral artery distally appears to reconstitute as basilar artery as on axial images [id number], series 2, though gradually tapering as it heads cephalad and completely occluded distally for approximately 1.2 cm long segment at the [place], axial images [id number], series 2. CTA HEAD: Extensive bilateral ICA calcifications with approximately 80% left distal ICA stenosis at the origin of the left MCA suspected as on axial images [id number], series 2. Patent remainder imaged SYLVIA, MCA and [facility]IC[facility] branches. Intact calvarium. Normal eye globes. Mild right posterior ethmoid mucosal thickening. Bilateral maxillary and sphenoid sinus mucosal thickening or retention cysts as well. Slight frontoethmoid mucosal thickening as well. Slight nasal septal deviation. Clear temporal bone air cells with mastoid tips not pneumatized. Multilevel cervical vertebral body and facet degenerative spurring noted with preserved alignment. Few missing teeth. CONCLUSION: 1. Bilateral distal vertebral artery thrombosis/occlusion. Right distal vertebral/basilar artery thereafter recannulized, though again occludes distally at the [place], as detailed above. 2. Bilateral carotid bulb atherosclerotic changes with mild right proximal ICA stenosis. 3. Various other findings, as above. Thank you for the opportunity to participate in this patient's care.
[2017-07-02 16:26] LABS: Hemoglobin 15.4 gm/dl (11.8-15.2); Mean Corpuscular HGB Conc 34 % (32-34); Mean Corpuscular Hemoglobin 30 pg (28-32); Mean Corpuscular Volume 87 fl (84-94); Platelet Count 181 K/mm3 (140-440); Red Blood Count 5.19 M/mm3 (3.65-5.03); White Blood Count 9.5 K/mm3 (4.5-11.0)
[2017-07-02 16:35] LABS: Hematocrit 44.9 % (35.5-45.6)
[2017-07-02 16:37] LABS: INR 1.01 (0.87-1.13)
[2017-07-02 16:38] LABS: Partial Thromboplastin Time 27.4 Sec. (24.2-36.6)
[2017-07-02 17:08] LABS: Anion Gap 22 mmol/L; Blood Urea Nitrogen 14 mg/dL (9-20); Carbon Dioxide 22 mmol/L (22-30); Chloride 95.3 mmol/L (98-107); Glucose 75 mg/dL (75-100); Potassium 3.7 mmol/L (3.6-5.0); Sodium 136 mmol/L (137-145)
--- NOTE | 2017-07-02 18:10 | XRay Report ---
FINAL REPORT EXAM: XR ABDOMEN 1V AP HISTORY: NG tube placement TECHNIQUE: Single-view abdomen 1 image PRIORS: None. FINDINGS: There is a nonobstructed bowel-gas pattern. There is an enteric tube coursing to the left lung base. No acute osseous abnormality is identified. IMPRESSION: 1. Nonobstructed bowel-gas pattern. 2. The enteric tube is malpositioned. It courses through the left mainstem bronchus into the left lung base. This should be removed and repositioned. C1
[2017-07-02] MEDS: HEPARIN/ 0.45% NACL-25,000 UNIT/500 ML 25,000 UNIT/500 ML BAG IV SCH (18:57)
--- NOTE | 2017-07-03 05:48 | XRay Report ---
FINAL REPORT EXAM: XR ABDOMEN 1V AP HISTORY: Dobhoff placement COMPARISONS: 07/02/2017 FINDINGS: 2 AP portable images of the abdomen Prominent air-filled stomach. No enteric tube is seen within the imaged field of view on either image of the abdomen. No supine evidence of pneumoperitoneum. IMPRESSION: No enteric tube identified within the imaged field of view. Clinical correlation with time in location of tube placement is requested. Consider imaging of the entire chest as warranted. Repeat abdominal radiographs are recommended following to repositioning/replacement.
--- NOTE | 2017-07-03 08:32 | Progress Note ---
Assessment and Plan Assessment and plan: 67 YO Male with Nicotine Dependence, htn, etoh dependence who came to ED with feeling weak and dizzy and blurred vision for the past 2 days with worsening symptoms that started about 2000hrs on the day prior to admission. Also noted to have altered mental status CVA (cerebral vascular accident) with infarct * continue Stroke protocol, continue to allow permissive htn to maximize perfusion, continue heparin drip * : Pt underwent Echo/Carotid Doppler in 04/30. Results reviewed. Normal Echo, Doppler showed no significant stenosis. -LDL is 122, will put on statin if able to place an NG tube MRA brain, image reviewed, probable occlusion of the basilar artery and left vertebral artery as seen with possible some total stenosis of the distal right vertebral artery MRI brain, image reviewed, multiple recent strokes are seen in the cerebellar hemispheres, acute CVA is suspected the left side of the heather. CTA head and neck, image reviewed, bilateral distal vertebral artery thrombosis/ occlusion, right distal vertebral/basilar artery thereafter recanalizes, bili again occludes distally at the [place]. -Bilateral carotid bulb atherosclerotic changes with mild right proximal ICA stenosis Accelerated hypertension continue to allow permissive htn, to maximize intracranial perfusion Nicotine dependence supportive care, nicotine patches as needed Etoh withdrawal * continue CIWA protocol Metabolic encephalopathy * Was likely due to acute CVA, Continue supportive care, ammonia level within normal limits, UA and chest x-ray were negative * likely due to etoh withdrawal, continue CIWA protocol Dysphasia/aphasia * Due to acute stroke, keep nothing by mouth, place NG tube if tolerated * Speech and swallow therapy input appreciated, patient has profound oropharyngeal dysphagia The plan was discussed with his , his prognosis is poor given extensive CVA. She did elected to make him DO NOT RESUSCITATE, and states that he does survive, she would like him placed in an inpatient hospice History Interval history: Mental status has now improved, patient is still aphasic but able to obey commands Hospitalist Physical - Physical exam Narrative exam: General.: Appears well, no distress, nontoxic HEENT: Moist mucous membranes, extraocular muscles intact, no lymphadenopathy Neck: supple Cardiac: S1-S2 heard Lungs: clear to auscultation bilaterally Abdomen: soft , nontender, nondistended, bowel sounds positive Extremities: no edema clubbing or cyanosis Skin: no rash or lesions Neurologic: Moves only the left side of his body extremities, aphasic, but able to obey commands, , Right hemiparesis, - Constitutional Vitals: Temp Pulse Resp BP Pulse Ox 98.8 F 113 H 16 175/99 99 07/03/17 05:36 07/03/17 05:36 07/03/17 05:36 07/03/17 05:36 07/03/17 05:36 General appearance: Present: disheveled Results - Labs CBC & Chem 7: 07/02/17 16:09 07/02/17 16:09 Labs: Laboratory Last Values WBC 9.5 K/mm3 (4.5-11.0) 07/02/17 16:09 RBC 5.19 M/mm3 (3.65-5.03) H 07/02/17 16:09 Hgb 15.4 gm/dl (11.8-15.2) H 07/02/17 16:09 Hct 44.9 % (35.5-45.6) D 07/02/17 16:09 MCV 87 fl (84-94) 07/02/17 16:09 MCH 30 pg (28-32) 07/02/17 16:09 MCHC 34 % (32-34) 07/02/17 16:09 RDW 14.0 % (13.2-15.2) 07/02/17 16:09 Plt Count 181 K/mm3 (140-440) 07/02/17 16:09 Lymph % (Auto) 18.4 % (13.4-35.0) 06/30/17 12:37 [place] % (Auto) 3.3 % (0.0-7.3) 06/30/17 12:37 Eos % (Auto) 0.2 % (0.0-4.3) 06/30/17 12:37 Baso % (Auto) 0.5 % (0.0-1.8) 06/30/17 12:37 Lymph # 2.1 K/mm3 (1.2-5.4) 06/30/17 12:37 [place] # 0.4 K/mm3 (0.0-0.8) 06/30/17 12:37 Eos # 0.0 K/mm3 (0.0-0.4) 06/30/17 12:37 Baso # 0.1 K/mm3 (0.0-0.1) 06/30/17 12:37 Seg Neutrophils % 77.6 % (40.0-70.0) H 06/30/17 12:37 Seg Neutrophils # 8.8 K/mm3 (1.8-7.7) H 06/30/17 12:37 PT 13.8 Sec. (12.2-14.9) 07/02/17 16:09 INR 1.01 (0.87-1.13) 07/02/17 16:09 APTT 27.4 Sec. (24.2-36.6) 07/02/17 16:09 Heparin Anti-Xa Level 1.26 U.I./ml (0.3-0.7) H 07/03/17 06:00 Sodium 136 mmol/L (137-145) L 07/02/17 16:09 Potassium 3.7 mmol/L (3.6-5.0) D 07/02/17 16:09 Chloride 95.3 mmol/L (98-107) L 07/02/17 16:09 Carbon Dioxide 22 mmol/L (22-30) 07/02/17 16:09 Anion Gap 22 mmol/L 07/02/17 16:09 BUN 14 mg/dL (9-20) 07/02/17 16:09 Creatinine 0.7 mg/dL (0.8-1.5) L 07/02/17 16:09 Estimated GFR > 60 ml/min 07/02/17 16:09 BUN/Creatinine Ratio 20.00 % 07/02/17 16:09 Glucose 75 mg/dL (75-100) 07/02/17 16:09 POC Glucose 79 (70-105) 07/02/17 08:15 Calcium 9.0 mg/dL (8.4-10.2) 07/02/17 16:09 Total Bilirubin 0.50 mg/dL (0.1-1.2) 06/30/17 16:12 Direct Bilirubin < 0.2 mg/dL (0-0.2) 06/30/17 16:12 Indirect Bilirubin 0.3 mg/dL 06/30/17 16:12 AST 14 units/L (5-40) 06/30/17 16:12 ALT 14 units/L (7-56) 06/30/17 16:12 Alkaline Phosphatase 81 units/L (35-129) 06/30/17 16:12 Ammonia 37.0 umol/L (25-60) 07/01/17 16:11 Troponin T < 0.010 ng/mL (0.00-0.029) 06/30/17 Unknown Total Protein 8.2 g/dL (6.3-8.2) 06/30/17 16:12 Albumin 4.4 g/dL (3.9-5) 06/30/17 16:12 Albumin/Globulin Ratio 1.2 % 06/30/17 16:12 Triglycerides 69 mg/dL (2-149) 07/01/17 05:07 Cholesterol 193 mg/dL (50-199) 07/01/17 05:07 LDL Cholesterol Direct 122 mg/dL (50-130) 07/01/17 05:07 HDL Cholesterol 58 mg/dL (40-59) 07/01/17 05:07 Cholesterol/HDL Ratio 3.32 % 07/01/17 05:07 TSH 0.753 mlU/mL (0.270-4.200) 06/30/17 16:12 Urine Color Yellow (Yellow) 06/30/17 02:40 Urine Turbidity Clear (Clear) 06/30/17 02:40 Urine pH 5.0 (5.0-7.0) 06/30/17 02:40 Ur Specific [place] 1.026 (1.003-1.030) 06/30/17 02:40 Urine Protein 30 mg/dl mg/dL (Negative) 06/30/17 02:40 Urine Glucose (UA) 50 mg/dL (Negative) 06/30/17 02:40 Urine Ketones Tr mg/dL (Negative) 06/30/17 02:40 Urine Blood Sm (Negative) 06/30/17 02:40 Urine Nitrite Neg (Negative) 06/30/17 02:40 Urine Bilirubin Neg (Negative) 06/30/17 02:40 Urine Urobilinogen < 2.0 mg/dL (<2.0) 06/30/17 02:40 Ur Leukocyte Esterase Neg (Negative) 06/30/17 02:40 Urine WBC (Auto) 2.0 /HPF (0.0-6.0) 06/30/17 02:40 Urine RBC (Auto) 9.0 /HPF (0.0-6.0) 06/30/17 02:40 U Epithel Cells (Auto) < 1.0 /HPF (0-13.0) 06/30/17 02:40 Amorphous Crystals 2+ 06/30/17 02:40 Hyaline Casts 5 /LPF 06/30/17 02:40 Urine Mucus 3+ /HPF 06/30/17 02:40
--- NOTE | 2017-07-03 10:40 | Progress Note ---
Subjective Date of service: 07/03/17 Principal diagnosis: Stroke Interval history: NEUROLOGY PROGRESS NOTE EXAM: He is much the same as yesterday, only he can move his eyes more to the left than before, but cannot now lift his right leg off the bed. The right arm is now plegic. Still alert and following commands. CTA of head and neck reviewed. These show absence of signal in both vertebrals and in the basilar artery beginning at the C1 level in the neck (near the Foramen Magnum) with partial reconstitution of the Right vertebral distally. Absence of signal does not mean total occlusion necessarily but it does imply servere compromise of flow/sub total occlusion. Significant carotid disease is also documented. DISCUSSION WITH FAMILY: Had good 20 min discussion with Angy and one son who is training to repair jewelry at present. The diagnosis, test results, impLications of these, the high liklihood that he will not survive this and if he does will have significant impairments were all discussed as was the management plan (iv fluids , Heparin, tincture of time). All questions were answered. The voiced that she wants to make her DNR and that he would want this also. IMP: 1. Multiple posterior circulation acute infarcts (cerebellum and brain stem - left cerebral peduncle) secondary to occlusive vertebrobasilar disease with clinical deficits as described. RECC: 1. Continue current regimen. 2. Get speech and swallowing to see. 3. Get PT to see re passive ROM joints 4. Patient speaks Bill and Irish and could write with his left hand ( inferred from neurologic exam) but he shakes his head "no" when I suggest this. Family will experiment with this (clip board, paper, marking pen, held up for him and in front of his face so he can see it...eyes will not move fully leftward). and son cannot read Bill. 5. Patient is perfectly alert. TV and himself should be positioned so he can see it (NOT sitting bolt upright but just barely with head of bed elevated re posterior circulation). He likes to watch TV old shows. 5. Discuss DNR status with and write order. 6. If patient survives more than a week, then SS consult will be needed re disposition. 7. Steroid Rx plays no role in expected brain edema from infarcts with maximal swelling expected days 3, 4, and 5. Today is day 3. Not a mannitol or hot salt situation. 6. Go from there. Jazlyn Guo MD Objective - Vital Sign Vital Signs - 12hr 07/03/17 07/03/17 00:52 05:36 Temperature 98.7 F 98.8 F Pulse Rate 88 113 H Respiratory 18 16 Rate Blood Pressure 201/96 175/99 O2 Sat by Pulse 100 99 Oximetry - Laboratory Findings CBC and BMP: 07/02/17 16:09 07/02/17 16:09 Abnormal Lab Findings: Abnormal Labs 07/02/17 07/02/17 07/02/17 16:09 16:09 23:15 RBC 5.19 H Hgb 15.4 H Heparin Anti-Xa Level 0.74 H Sodium 136 L Chloride 95.3 L Creatinine 0.7 L 07/03/17 06:00 RBC Hgb Heparin Anti-Xa Level 1.26 H Sodium Chloride Creatinine
[2017-07-03] MEDS: HEPARIN/ 0.45% NACL-25,000 UNIT/500 ML 25,000 UNIT/500 ML BAG IV SCH ×2 (14:00→18:44)
[2017-07-03] MEDS: NACL 0.9% 1000 ML 1,000 ML IV SCH (18:43)
--- NOTE | 2017-07-03 21:48 | XRay Report ---
FINAL REPORT EXAM: XR ABDOMEN 1V AP HISTORY: dobhoff placement TECHNIQUE: Supine abdomen PRIORS: None. FINDINGS: Dobhoff tube identified. Tip overlies the gastric antrum/1st portion of the duodenum. Moderate amount of stool and gas present within the colon. No evidence of colonic or small bowel dilatation. No signs of free air. No abnormal calcifications are identified. IMPRESSION: Nonobstructive bowel gas pattern. No acute abnormality seen.
[2017-07-04] MEDS: ZOCOR PO SCH (00:05)
[2017-07-04] MEDS: NACL 0.9% 1000 ML 1,000 ML IV SCH ×2 (03:03→22:43)
[2017-07-04] MEDS ORDERED: SODIUM BICARBONATE FEEDTUBE PRN ×2 (03:44→12:00)
[2017-07-04] MEDS ORDERED: SIMPLE SYRUP FEEDTUBE PRN ×4 (03:44→12:00)
[2017-07-04] MEDS ORDERED: PANCREAZE DR 10,500 UNIT FEEDTUBE PRN ×2 (03:44→12:00)
[2017-07-04 06:06] LABS: Hematocrit 43.9 % (35.5-45.6); Hemoglobin 14.7 gm/dl (11.8-15.2)
--- NOTE | 2017-07-04 09:20 | Progress Note ---
Assessment and Plan Assessment and plan: 67 YO Male with Nicotine Dependence, htn, etoh dependence who came to ED with feeling weak and dizzy and blurred vision for the past 2 days with worsening symptoms that started about 2000hrs on the day prior to admission. Also noted to have altered mental status. Apparently this patient had a brother who was younger than him and had a stroke at a young age and within a week CVA (cerebral vascular accident) with infarct * continue Stroke protocol, continue to allow permissive htn to maximize perfusion, continue heparin drip, transition to warfarin * : Pt underwent Echo/Carotid Doppler in 04/30. Results reviewed. Normal Echo, Doppler showed no significant stenosis. -LDL is 122, continue statin MRA brain, image reviewed, probable occlusion of the basilar artery and left vertebral artery as seen with possible some total stenosis of the distal right vertebral artery MRI brain, image reviewed, multiple recent strokes are seen in the cerebellar hemispheres, acute CVA is suspected the left side of the heather. CTA head and neck, image reviewed, bilateral distal vertebral artery thrombosis/ occlusion, right distal vertebral/basilar artery thereafter recanalizes, bili again occludes distally at the [place]. -Bilateral carotid bulb atherosclerotic changes with mild right proximal ICA stenosis Accelerated hypertension continue to allow permissive htn, to maximize intracranial perfusion Nicotine dependence supportive care, nicotine patches as needed Etoh withdrawal * continue CIWA protocol Metabolic encephalopathy * Was likely due to acute CVA, Continue supportive care, ammonia level within normal limits, UA and chest x-ray were negative * likely due to etoh withdrawal, continue CIWA protocol Dysphasia/aphasia * Due to acute stroke, keep nothing by mouth, continue feeding through NG tube * Speech and swallow therapy input appreciated, patient has profound oropharyngeal dysphagia Moderate malnutrition * Dietitian appreciated, continue tube feeds * For G-tube placement tomorrow, GI consulted, the agrees with this plan The plan was discussed with his , his prognosis is poor given extensive CVA. She did elected to make him DO NOT RESUSCITATE, and states that he does survive, she would like him placed in an inpatient hospice History Interval history: Mental status has now improved, patient is still aphasic but able to obey commands Hospitalist Physical - Physical exam Narrative exam: General.: Appears well, no distress, nontoxic HEENT: Moist mucous membranes, extraocular muscles intact, no lymphadenopathy Neck: supple Cardiac: S1-S2 heard Lungs: clear to auscultation bilaterally Abdomen: soft , nontender, nondistended, bowel sounds positive Extremities: no edema clubbing or cyanosis Skin: no rash or lesions Neurologic: Moves only the left side of his body extremities, aphasic, but able to obey commands, , Right hemiparylysis - Constitutional Vitals: Temp Pulse Resp BP Pulse Ox 98.1 F 105 H 18 182/96 97 07/04/17 05:14 07/04/17 05:14 07/04/17 05:14 07/04/17 05:14 07/04/17 05:14 General appearance: Present: disheveled Results - Labs CBC & Chem 7: 07/04/17 05:28 07/02/17 16:09 Labs: Laboratory Last Values WBC 9.5 K/mm3 (4.5-11.0) 07/02/17 16:09 RBC 5.19 M/mm3 (3.65-5.03) H 07/02/17 16:09 Hgb 14.7 gm/dl (11.8-15.2) 07/04/17 05:28 Hct 43.9 % (35.5-45.6) 07/04/17 05:28 MCV 87 fl (84-94) 07/02/17 16:09 MCH 30 pg (28-32) 07/02/17 16:09 MCHC 34 % (32-34) 07/02/17 16:09 RDW 14.0 % (13.2-15.2) 07/02/17 16:09 Plt Count 162 K/mm3 (140-440) 07/04/17 05:28 Lymph % (Auto) 18.4 % (13.4-35.0) 06/30/17 12:37 [place] % (Auto) 3.3 % (0.0-7.3) 06/30/17 12:37 Eos % (Auto) 0.2 % (0.0-4.3) 06/30/17 12:37 Baso % (Auto) 0.5 % (0.0-1.8) 06/30/17 12:37 Lymph # 2.1 K/mm3 (1.2-5.4) 06/30/17 12:37 [place] # 0.4 K/mm3 (0.0-0.8) 06/30/17 12:37 Eos # 0.0 K/mm3 (0.0-0.4) 06/30/17 12:37 Baso # 0.1 K/mm3 (0.0-0.1) 06/30/17 12:37 Seg Neutrophils % 77.6 % (40.0-70.0) H 06/30/17 12:37 Seg Neutrophils # 8.8 K/mm3 (1.8-7.7) H 06/30/17 12:37 PT 13.8 Sec. (12.2-14.9) 07/02/17 16:09 INR 1.01 (0.87-1.13) 07/02/17 16:09 APTT 27.4 Sec. (24.2-36.6) 07/02/17 16:09 Heparin Anti-Xa Level 0.58 U.I./ml (0.3-0.7) 07/03/17 20:48 Sodium 136 mmol/L (137-145) L 07/02/17 16:09 Potassium 3.7 mmol/L (3.6-5.0) D 07/02/17 16:09 Chloride 95.3 mmol/L (98-107) L 07/02/17 16:09 Carbon Dioxide 22 mmol/L (22-30) 07/02/17 16:09 Anion Gap 22 mmol/L 07/02/17 16:09 BUN 14 mg/dL (9-20) 07/02/17 16:09 Creatinine 0.7 mg/dL (0.8-1.5) L 07/02/17 16:09 Estimated GFR > 60 ml/min 07/02/17 16:09 BUN/Creatinine Ratio 20.00 % 07/02/17 16:09 Glucose 75 mg/dL (75-100) 07/02/17 16:09 POC Glucose 100 (70-105) 07/03/17 23:45 Calcium 9.0 mg/dL (8.4-10.2) 07/02/17 16:09 Total Bilirubin 0.50 mg/dL (0.1-1.2) 06/30/17 16:12 Direct Bilirubin < 0.2 mg/dL (0-0.2) 06/30/17 16:12 Indirect Bilirubin 0.3 mg/dL 06/30/17 16:12 AST 14 units/L (5-40) 06/30/17 16:12 ALT 14 units/L (7-56) 06/30/17 16:12 Alkaline Phosphatase 81 units/L (35-129) 06/30/17 16:12 Ammonia 37.0 umol/L (25-60) 07/01/17 16:11 Troponin T < 0.010 ng/mL (0.00-0.029) 06/30/17 Unknown Total Protein 8.2 g/dL (6.3-8.2) 06/30/17 16:12 Albumin 4.4 g/dL (3.9-5) 06/30/17 16:12 Albumin/Globulin Ratio 1.2 % 06/30/17 16:12 Triglycerides 69 mg/dL (2-149) 07/01/17 05:07 Cholesterol 193 mg/dL (50-199) 07/01/17 05:07 LDL Cholesterol Direct 122 mg/dL (50-130) 07/01/17 05:07 HDL Cholesterol 58 mg/dL (40-59) 07/01/17 05:07 Cholesterol/HDL Ratio 3.32 % 07/01/17 05:07 TSH 0.753 mlU/mL (0.270-4.200) 06/30/17 16:12 Urine Color Yellow (Yellow) 06/30/17 02:40 Urine Turbidity Clear (Clear) 06/30/17 02:40 Urine pH 5.0 (5.0-7.0) 06/30/17 02:40 Ur Specific [place] 1.026 (1.003-1.030) 06/30/17 02:40 Urine Protein 30 mg/dl mg/dL (Negative) 06/30/17 02:40 Urine Glucose (UA) 50 mg/dL (Negative) 06/30/17 02:40 Urine Ketones Tr mg/dL (Negative) 06/30/17 02:40 Urine Blood Sm (Negative) 06/30/17 02:40 Urine Nitrite Neg (Negative) 06/30/17 02:40 Urine Bilirubin Neg (Negative) 06/30/17 02:40 Urine Urobilinogen < 2.0 mg/dL (<2.0) 06/30/17 02:40 Ur Leukocyte Esterase Neg (Negative) 06/30/17 02:40 Urine WBC (Auto) 2.0 /HPF (0.0-6.0) 06/30/17 02:40 Urine RBC (Auto) 9.0 /HPF (0.0-6.0) 06/30/17 02:40 U Epithel Cells (Auto) < 1.0 /HPF (0-13.0) 06/30/17 02:40 Amorphous Crystals 2+ 06/30/17 02:40 Hyaline Casts 5 /LPF 06/30/17 02:40 Urine Mucus 3+ /HPF 06/30/17 02:40
[2017-07-04] MEDS ORDERED: TYLENOL FEEDTUBE PRN (12:00)
[2017-07-04] MEDS: BABY ASPIRIN FEEDTUBE SCH (13:15)
[2017-07-04 16:34] LABS: INR 1.11 (0.87-1.13)
[2017-07-04] MEDS ORDERED: COUMADIN PO SCH (17:00)
[2017-07-05] MEDS: HEPARIN/ 0.45% NACL-25,000 UNIT/500 ML 25,000 UNIT/500 ML BAG IV SCH (03:38)
[2017-07-05 06:48] LABS: Basophils % (Auto) 0.6 % (0.0-1.8); Eosinophils % (Auto) 2.4 % (0.0-4.3); Hematocrit 40.6 % (35.5-45.6); Hemoglobin 13.9 gm/dl (11.8-15.2); Mean Corpuscular HGB Conc 34 % (32-34); Mean Corpuscular Hemoglobin 30 pg (28-32); Mean Corpuscular Volume 87 fl (84-94); Platelet Count 159 K/mm3 (140-440); Red Blood Count 4.68 M/mm3 (3.65-5.03); Red Cell Distribution Width 13.8 % (13.2-15.2); White Blood Count 8.9 K/mm3 (4.5-11.0)
[2017-07-05 06:49] LABS: Anion Gap 16 mmol/L; BUN/Creatinine Ratio 17.14; Blood Urea Nitrogen 12 mg/dL (9-20); Calcium 8.3 mg/dL (8.4-10.2); Carbon Dioxide 25 mmol/L (22-30); Chloride 100.5 mmol/L (98-107); Glucose 109 mg/dL (75-100); Potassium 3.3 mmol/L (3.6-5.0); Sodium 138 mmol/L (137-145)
--- NOTE | 2017-07-05 09:52 | Gastroenterology Consultation ---
History of Present Illness - Reason for Consult Consult date: 07/05/17 PEG placement Requesting physician: INES LEGER - History of Present Illness Patient is a 67 y/o male with PMH of HTN and nicotine/ETOH dependence who was admitted for a CVA. He has developed aphasia and dysphagia 2/2 acute stroke with a failed speech/swallowing eval on 07/03. GI has been consulted for PEG placement. Feedings currently being given via Dobhoff. Patient resting in bed this am. He is awake, alert, able to nod head to questions, follow commands, but is asphasic and unable to give history. History retrieved via chart review. No acute distress noted. Abd soft, non-distended, with +BS. Past History Past Medical History: hypertension, stroke, other (nicotine dependence) Past Surgical History: No surgical history, Other (reviewed) Social history: , lives with family, smoking. denies: alcohol abuse, prescription drug abuse, IV drug use Family history: hypertension Medications and Allergies Allergies Allergy/AdvReac Type Severity Reaction Status Date / Time No Known Allergies Allergy Verified 04/29/17 10:20 Home Medications Medication Instructions Recorded Confirmed Last Taken Type Aspirin [Aspirin TAB] 325 mg PO QDAY #30 tablet 05/01/17 07/01/17 Unknown Rx Rosuvastatin (Nf) [Crestor] 20 mg PO QHS #30 tablet 05/01/17 07/01/17 Unknown Rx Active Meds: Active Medications Acetaminophen (Tylenol) 650 mg FEEDTUBE Q4H PRN PRN Reason: Pain, Mild (1-3) Lipase/Protease/Amylase (Brooke Dr 10,500 Unit) 1 each FEEDTUBE PRN PRN PRN Reason: For Clogged Feeding Tube Aspirin (Baby Aspirin) 81 mg FEEDTUBE QDAY BRITNEY Last Admin: 07/04/17 13:15 Dose: 81 mg Atorvastatin Calcium (Lipitor) 40 mg FEEDTUBE QHS BRITNEY Last Admin: 07/04/17 22:43 Dose: 40 mg Bisacodyl (Dulcolax) 10 mg MD QDAY PRN PRN Reason: Constipation Haloperidol Lactate (Haldol) 5 mg IV Q1H PRN PRN Reason: Unrespon. to mult. doses BZD's Sodium Chloride (Nacl 0.9% 1000 Ml) 1,000 mls @ 100 mls/hr IV DIRECT BRITNEY Last Admin: 07/04/17 22:43 Dose: 100 mls/hr Heparin Sodium/Sodium Chloride (Heparin/ 0.45% Nacl-25,000 Unit/500 Ml) 25,000 unit in 500 mls @ 20 mls/hr IV TITR BRITNEY; 1,000 UNITS/HR PRN Reason: Protocol Last Admin: 07/05/17 03:38 Dose: 800 units/hr, 16 mls/hr Labetalol HCl (Normodyne) 10 mg IV Q6H PRN PRN Reason: FOR BP >220/120 Lorazepam (Ativan) 2 mg IV Q1H PRN PRN Reason: CIWA-Ar 8-15 Lorazepam (Ativan) 4 mg IV Q1H PRN PRN Reason: CIWA-Ar 16-25 Lorazepam (Ativan) 4 mg IV Q15MIN PRN PRN Reason: CIWA-Ar >25 Stop: 07/06/17 01:28 Ondansetron HCl (Zofran) 4 mg IV Q8H PRN PRN Reason: N/V unrelieved by Aviva Last Admin: 06/30/17 21:22 Dose: 4 mg Simple Syrup (Simple Syrup) 15 ml FEEDTUBE PRN PRN PRN Reason: Hypoglycemia Simple Syrup (Simple Syrup) 30 ml FEEDTUBE PRN PRN PRN Reason: Hypoglycemia Sodium Bicarbonate (Sodium Bicarbonate) 325 mg FEEDTUBE PRN PRN PRN Reason: For Clogged Feeding Tube Sodium Chloride (Sodium Chloride Flush Syringe 10 Ml) 10 ml IV PRN PRN PRN Reason: LINE FLUSH Warfarin Sodium (Coumadin Pharmacy To Dose) 1 each PO PKCONSULT [facility] PRN Reason: Protocol Warfarin Sodium (Coumadin) 7.5 mg PO DAILY@1700 [facility] Last Admin: 07/04/17 19:46 Dose: 7.5 mg Review of Systems - Review of Systems ROS unobtainable: due to mental status (aphasic) Exam - Constitutional Vital Signs: Temp Pulse Resp BP Pulse Ox 98.0 F 94 H 20 153/94 96 07/05/17 07:25 07/05/17 07:25 07/05/17 07:25 07/05/17 07:25 07/05/17 07:25 General appearance: no acute distress, well-nourished - EENT Eyes: PERRL, EOM intact ENT: hearing intact, other (Dobhoff ) - Respiratory Respiratory: bilateral: diminished (anterior) - Cardiovascular Rhythm: other (tachycardia) Heart Sounds: Present: S1 & S2 Extremities: No edema - Gastrointestinal General gastrointestinal: Present: soft, non-distended, normal bowel sounds - Integumentary Integumentary: Present: warm, dry - Neurologic Neurological: right side weakness - Labs CBC & Chem 7: 07/05/17 05:56 07/05/17 05:56 Lab Results: Laboratory Results - last 24 hr 07/04/17 07/04/17 07/05/17 09:43 15:50 05:56 WBC 8.9 RBC 4.68 Hgb 13.9 Hct 40.6 MCV 87 MCH 30 MCHC 34 RDW 13.8 Plt Count 159 Lymph % (Auto) 28.3 [place] % (Auto) 7.8 H Eos % (Auto) 2.4 Baso % (Auto) 0.6 Lymph # 2.5 [place] # 0.7 Eos # 0.2 Baso # 0.1 Seg Neutrophils % 60.9 Seg Neutrophils # 5.4 PT 14.9 INR 1.11 Heparin Anti-Xa Level 0.66 Sodium Potassium Chloride Carbon Dioxide Anion Gap BUN Creatinine Estimated GFR BUN/Creatinine Ratio Glucose Calcium 07/05/17 05:56 WBC RBC Hgb Hct MCV MCH MCHC RDW Plt Count Lymph % (Auto) [place] % (Auto) Eos % (Auto) Baso % (Auto) Lymph # [place] # Eos # Baso # Seg Neutrophils % Seg Neutrophils # PT INR Heparin Anti-Xa Level Sodium 138 Potassium 3.3 L Chloride 100.5 Carbon Dioxide 25 Anion Gap 16 BUN 12 Creatinine 0.7 L Estimated GFR > 60 BUN/Creatinine Ratio 17.14 Glucose 109 H Calcium 8.3 L Assessment and Plan 1.PEG placement -failed speech/swallowing eval on 07/03 -called and spoke with pt's Angy Sotelo ([phone] or [phone]) and discussed the nature of the procedure, details of technique, benefits, purpse, and risks including perforation, bleeding, infection, and risks of anesthesia. She voiced understanding and wishes to proceed with PEG placement. -Keep NPO after MN -hold coumadin dose today -stop heparin in am at 0600 -will order PT/INR in am -will schedule for EGD with PEG placement in am -will follow
[2017-07-05] MEDS: BABY ASPIRIN FEEDTUBE SCH (10:00)
--- NOTE | 2017-07-05 10:47 | Progress Note ---
Subjective Date of service: 07/05/17 Principal diagnosis: Stroke Interval history: NEUROLOGY PROGRESS NOTE Pt seen and examined. Exam somewhat improved. He can open his mouth wider, protrude his tongue out further, move his eyes leftward further. right UE and LE still plegic. He remains alert, oriented, and capable of folloing commands. IMP: 1. 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 RECC: 1. Went over with nursing staff his need for a communication system/device, and to start with clip board, paper, and marking pen, with clip board held up for him to the right (where he can see it). 2. Go from there. Call as needed. Jazlyn Guo MD Objective - Vital Sign Vital Signs - 12hr 07/05/17 07/05/17 07/05/17 00:38 05:27 07:25 Temperature 99.3 F 98.5 F 98.0 F Pulse Rate 117 H 104 H 94 H Respiratory 21 18 20 Rate Blood Pressure 173/95 153/94 Blood Pressure 143/73 [Left] O2 Sat by Pulse 96 96 Oximetry - Laboratory Findings CBC and BMP: 07/05/17 05:56 07/05/17 05:56 Abnormal Lab Findings: Abnormal Labs 07/02/17 07/02/17 07/02/17 16:09 16:09 23:15 RBC 5.19 H Hgb 15.4 H [place] % (Auto) Heparin Anti-Xa Level 0.74 H Sodium 136 L Potassium Chloride 95.3 L Creatinine 0.7 L Glucose Calcium 07/03/17 07/05/17 07/05/17 06:00 05:56 05:56 RBC Hgb [place] % (Auto) 7.8 H Heparin Anti-Xa Level 1.26 H Sodium Potassium 3.3 L Chloride Creatinine 0.7 L Glucose 109 H Calcium 8.3 L
[2017-07-05 13:59] LABS: INR 1.42 (0.87-1.13)
--- NOTE | 2017-07-05 17:39 | Progress Note ---
Assessment and Plan Assessment and plan: 67 YO Male with Nicotine Dependence, htn, etoh dependence who came to ED with feeling weak and dizzy and blurred vision for the past 2 days with worsening symptoms that started about 2000hrs on the day prior to admission. Also noted to have altered mental status. Apparently this patient had a brother who was younger than him and had a stroke at a young age and within a week CVA (cerebral vascular accident) with infarct * continue Stroke protocol, continue to allow permissive htn to maximize perfusion, continue heparin drip, transition to warfarin * : Pt underwent Echo/Carotid Doppler in 04/30. Results reviewed. Normal Echo, Doppler showed no significant stenosis. -LDL is 122, continue statin MRA brain, image reviewed, probable occlusion of the basilar artery and left vertebral artery as seen with possible some total stenosis of the distal right vertebral artery MRI brain, image reviewed, multiple recent strokes are seen in the cerebellar hemispheres, acute CVA is suspected the left side of the [place]ather. CTA head and neck, image reviewed, bilateral distal vertebral artery thrombosis/ occlusion, right distal vertebral/basilar artery thereafter recanalizes, bili again occludes distally at the [place] of [place]. -Bilateral carotid bulb atherosclerotic changes with mild right proximal ICA stenosis Accelerated hypertension continue to allow permissive htn, to maximize intracranial perfusion Nicotine dependence supportive care, nicotine patches as needed Etoh withdrawal * continue CIWA protocol Metabolic encephalopathy * Was likely due to acute CVA, Continue supportive care, ammonia level within normal limits, UA and chest x-ray were negative * likely due to etoh withdrawal, continue CIWA protocol Dysphasia/aphasia * Due to acute stroke, keep nothing by mouth, continue feeding through NG tube * Speech and swallow therapy input appreciated, patient has profound oropharyngeal dysphagia Moderate malnutrition * Dietitian appreciated, continue tube feeds * For G-tube placement tomorrow, GI consulted, the agrees with this plan Discussed with GI. Peg will be done tomorrow, Hold coumadin for today The plan was discussed with his , his prognosis is poor given extensive CVA. She did elected to make him DO NOT RESUSCITATE, and states that he does survive, she would like him placed in an inpatient hospice History Interval history: Patient seen and examined, appears frustrated with the clinical condition. attempting to move. Hospitalist Physical - Physical exam Narrative exam: VITAL SIGNS: Reviewed. GENERAL: The patient appeared well nourished and normally developed. Vital signs as documented. HEAD: No signs of head trauma. EYES: Pupils are equal. Extraocular motions intact. EARS: Hearing grossly intact. MOUTH: Oropharynx is normal. NECK: No adenopathy, no JVD. CHEST: Chest with clear breath sounds bilaterally. No wheezes, rales, or rhonchi. CARDIAC: Regular rate and rhythm. S1 and S2, without murmurs, gallops, or rubs. VASCULAR: No Edema. Peripheral pulses normal and equal in all extremities. ABDOMEN: Soft, without detectable tenderness. No sign of distention. No rebound or guarding, and no masses palpated. Bowel Sounds normal. MUSCULOSKELETAL: Extremities without clubbing, cyanosis or edema. NEUROLOGIC EXAM: Alert, right hemiparesis and aphasic. Follows some commands. PSYCHIATRIC: Mood normal. SKIN: No rash or lesions. - Constitutional Vitals: Temp Pulse Resp BP Pulse Ox 98.0 F 94 H 20 153/94 96 07/05/17 07:25 07/05/17 07:25 07/05/17 07:25 07/05/17 07:25 07/05/17 07:25 General appearance: Present: disheveled Results - Labs CBC & Chem 7: 07/05/17 05:56 07/05/17 05:56 Labs: Laboratory Last Values WBC 8.9 K/mm3 (4.5-11.0) 07/05/17 05:56 RBC 4.68 M/mm3 (3.65-5.03) 07/05/17 05:56 Hgb 13.9 gm/dl (11.8-15.2) 07/05/17 05:56 Hct 40.6 % (35.5-45.6) 07/05/17 05:56 MCV 87 fl (84-94) 07/05/17 05:56 MCH 30 pg (28-32) 07/05/17 05:56 MCHC 34 % (32-34) 07/05/17 05:56 RDW 13.8 % (13.2-15.2) 07/05/17 05:56 Plt Count 159 K/mm3 (140-440) 07/05/17 05:56 Lymph % (Auto) 28.3 % (13.4-35.0) 07/05/17 05:56 [place] % (Auto) 7.8 % (0.0-7.3) H 07/05/17 05:56 Eos % (Auto) 2.4 % (0.0-4.3) 07/05/17 05:56 Baso % (Auto) 0.6 % (0.0-1.8) 07/05/17 05:56 Lymph # 2.5 K/mm3 (1.2-5.4) 07/05/17 05:56 [place] # 0.7 K/mm3 (0.0-0.8) 07/05/17 05:56 Eos # 0.2 K/mm3 (0.0-0.4) 07/05/17 05:56 Baso # 0.1 K/mm3 (0.0-0.1) 07/05/17 05:56 Seg Neutrophils % 60.9 % (40.0-70.0) 07/05/17 05:56 Seg Neutrophils # 5.4 K/mm3 (1.8-7.7) 07/05/17 05:56 PT 17.3 Sec. (12.2-14.9) H 07/05/17 13:19 INR 1.42 (0.87-1.13) H 07/05/17 13:19 APTT 27.4 Sec. (24.2-36.6) 07/02/17 16:09 Heparin Anti-Xa Level < 0.10 U.I./ml (0.3-0.7) L 07/05/17 10:15 Sodium 138 mmol/L (137-145) 07/05/17 05:56 Potassium 3.3 mmol/L (3.6-5.0) L 07/05/17 05:56 Chloride 100.5 mmol/L (98-107) 07/05/17 05:56 Carbon Dioxide 25 mmol/L (22-30) 07/05/17 05:56 Anion Gap 16 mmol/L 07/05/17 05:56 BUN 12 mg/dL (9-20) 07/05/17 05:56 Creatinine 0.7 mg/dL (0.8-1.5) L 07/05/17 05:56 Estimated GFR > 60 ml/min 07/05/17 05:56 BUN/Creatinine Ratio 17.14 % 07/05/17 05:56 Glucose 109 mg/dL (75-100) H 07/05/17 05:56 POC Glucose 100 (70-105) 07/03/17 23:45 Calcium 8.3 mg/dL (8.4-10.2) L 07/05/17 05:56 Total Bilirubin 0.50 mg/dL (0.1-1.2) 06/30/17 16:12 Direct Bilirubin < 0.2 mg/dL (0-0.2) 06/30/17 16:12 Indirect Bilirubin 0.3 mg/dL 06/30/17 16:12 AST 14 units/L (5-40) 06/30/17 16:12 ALT 14 units/L (7-56) 06/30/17 16:12 Alkaline Phosphatase 81 units/L (35-129) 06/30/17 16:12 Ammonia 37.0 umol/L (25-60) 07/01/17 16:11 Troponin T < 0.010 ng/mL (0.00-0.029) 06/30/17 Unknown Total Protein 8.2 g/dL (6.3-8.2) 06/30/17 16:12 Albumin 4.4 g/dL (3.9-5) 06/30/17 16:12 Albumin/Globulin Ratio 1.2 % 06/30/17 16:12 Triglycerides 69 mg/dL (2-149) 07/01/17 05:07 Cholesterol 193 mg/dL (50-199) 07/01/17 05:07 LDL Cholesterol Direct 122 mg/dL (50-130) 07/01/17 05:07 HDL Cholesterol 58 mg/dL (40-59) 07/01/17 05:07 Cholesterol/HDL Ratio 3.32 % 07/01/17 05:07 TSH 0.753 mlU/mL (0.270-4.200) 06/30/17 16:12 Urine Color Yellow (Yellow) 06/30/17 02:40 Urine Turbidity Clear (Clear) 06/30/17 02:40 Urine pH 5.0 (5.0-7.0) 06/30/17 02:40 Ur Specific [place] 1.026 (1.003-1.030) 06/30/17 02:40 Urine Protein 30 mg/dl mg/dL (Negative) 06/30/17 02:40 Urine Glucose (UA) 50 mg/dL (Negative) 06/30/17 02:40 Urine Ketones Tr mg/dL (Negative) 06/30/17 02:40 Urine Blood Sm (Negative) 06/30/17 02:40 Urine Nitrite Neg (Negative) 06/30/17 02:40 Urine Bilirubin Neg (Negative) 06/30/17 02:40 Urine Urobilinogen < 2.0 mg/dL (<2.0) 06/30/17 02:40 Ur Leukocyte Esterase Neg (Negative) 06/30/17 02:40 Urine WBC (Auto) 2.0 /HPF (0.0-6.0) 06/30/17 02:40 Urine RBC (Auto) 9.0 /HPF (0.0-6.0) 06/30/17 02:40 U Epithel Cells (Auto) < 1.0 /HPF (0-13.0) 06/30/17 02:40 Amorphous Crystals 2+ 06/30/17 02:40 Hyaline Casts 5 /LPF 06/30/17 02:40 Urine Mucus 3+ /HPF 06/30/17 02:40
[2017-07-05] MEDS: KCL 10MEQ/100ML 10 MEQ/100 ML BAG IV SCH ×3 (19:57→23:07)
[2017-07-06] MEDS: KCL 10MEQ/100ML 10 MEQ/100 ML BAG IV SCH (00:38)
[2017-07-06 07:46] LABS: Hematocrit 37.1 % (35.5-45.6); Hemoglobin 12.9 gm/dl (11.8-15.2)
[2017-07-06 07:56] LABS: INR 1.5 (0.87-1.13)
--- NOTE | 2017-07-06 10:02 | Discharge Summary ---
Providers - Providers Date of Admission: 06/30/17 18:34 Attending physician: FRANCISCO DUTTON MD 07/01/17 10:10 Consult to Physician [CONS] Routine Consulting Provider: SHANTANU ARREDONDO Reason For Exam: cva Place consult to:: [place] Notified:: no, but on his list Time called:: 12:00 07/04/17 03:45 Consult to Dietitian/Nutrition [CONS] Routine Physician Instructions: Assess nutrtn needs, initiate, modify, manage TF Reason For Exam: Reason for Consult: Write/Manage Tube Feeding Reason for Consult: Write/Manage Tube Feeding 07/04/17 14:48 Consult to Physician [CONS] Routine Consulting Provider: LIN SOOD Reason For Exam: PEG tube placement Place consult to:: Dr. Sood Notified:: Antony DORMAN Phone number called:: Was contact made?: Yes If yes, spoke with:: Office Time called:: 15:49 Primary care physician: POTTERY DECORATOR Hospitalization Reason for admission: CVA Condition: Stable Hospital course: 67 YO Male with Nicotine Dependence, htn, etoh dependence who came to ED with feeling weak and dizzy and blurred vision for the past 2 days with worsening symptoms that started about 2000hrs on the day prior to admission. Also noted to have altered mental status. Apparently this patient had a brother who was younger than him and had a stroke at a young age and within a week CVA (cerebral vascular accident) with infarct * continue Stroke protocol, continue to allow permissive htn to maximize perfusion, continue heparin drip, transition to warfarin * : Pt underwent Echo/Carotid Doppler in 04/30. Results reviewed. Normal Echo, Doppler showed no significant stenosis. -LDL is 122, continue statin MRA brain, image reviewed, probable occlusion of the basilar artery and left vertebral artery as seen with possible some total stenosis of the distal right vertebral artery MRI brain, image reviewed, multiple recent strokes are seen in the cerebellar hemispheres, acute CVA is suspected the left side of the heather. CTA head and neck, image reviewed, bilateral distal vertebral artery thrombosis/ occlusion, right distal vertebral/basilar artery thereafter recanalizes, bili again occludes distally at the [place] of [place]. -Bilateral carotid bulb atherosclerotic changes with mild right proximal ICA stenosis Accelerated hypertension continue to allow permissive htn, to maximize intracranial perfusion Nicotine dependence supportive care, nicotine patches as needed Etoh withdrawal * continue CIWA protocol Metabolic encephalopathy * Was likely due to acute CVA, Continue supportive care, ammonia level within normal limits, UA and chest x-ray were negative * likely due to etoh withdrawal, continue CIWA protocol Dysphasia/aphasia * Due to acute stroke, keep nothing by mouth, continue feeding through NG tube * Speech and swallow therapy input appreciated, patient has profound oropharyngeal dysphagia Moderate malnutrition * Dietitian appreciated, continue tube feeds * For G-tube placement tomorrow, GI consulted, the agrees with this plan Discussed with GI. Peg was DONE EGD showed Moderately severe erosive esophagitis throughout the esophagus. 2. Normal stomach and duodenum. 3. Successful 20Fr G-tube placement. The plan was discussed with his , his prognosis is poor given extensive CVA. She did elected to make him DO NOT RESUSCITATE, and states that she would like him placed in an inpatient hospice Disposition: [facility] Time spent for discharge: 35 MINS Core Measure Documentation - Palliative Care Palliative Care/ Comfort Measures: Hospice Care - Core Measures Any of the following diagnoses?: stroke - VTE Discharge Requirements Deep Vein Thrombosis/Pulmonary Embolism Present on Admission: No Has pt received <5 days of overlap therapy or INR<2.0: Yes Anticoagulant overlap therapy prescribed at discharge: Yes - Stroke Discharge Requirements Statin for LDL = or >70 mg/dl on DC: Yes Anticoag for atrial fib/atrial flutter: Not Applicable Antithrombotic for ischemic stroke: Yes Exam - Physical Exam Narrative exam: VITAL SIGNS: Reviewed. GENERAL: The patient appeared well nourished and normally developed. Vital signs as documented. HEAD: No signs of head trauma. EYES: Pupils are equal. Extraocular motions intact. EARS: Hearing grossly intact. MOUTH: Oropharynx is normal. NECK: No adenopathy, no JVD. CHEST: Chest with clear breath sounds bilaterally. No wheezes, rales, or rhonchi. CARDIAC: Regular rate and rhythm. S1 and S2, without murmurs, gallops, or rubs. VASCULAR: No Edema. Peripheral pulses normal and equal in all extremities. ABDOMEN: Soft, without detectable tenderness. No sign of distention. No rebound or guarding, and no masses palpated. Bowel Sounds normal. MUSCULOSKELETAL: Extremities without clubbing, cyanosis or edema. NEUROLOGIC EXAM: Alert, right hemiparesis and aphasic. Follows some commands. PSYCHIATRIC: Mood normal. SKIN: No rash or lesions. - Constitutional Vitals: Temp Pulse Resp BP Pulse Ox 99.0 F 98 H 20 148/77 96 07/06/17 08:12 07/06/17 08:12 07/06/17 08:12 07/06/17 08:12 07/06/17 08:12 Plan Activity: advance as tolerated, fall precautions Diet: low fat Follow up with: PRIMARY CARE, [Primary Care Provider] - 3-5 Days Forms: Warfarin Discharge Instruction Prescriptions: AtorvaSTATin [Lipitor] 40 mg FEEDTUBE QHS #30 tablet Aspirin [Aspirin BABY CHEW TAB] 81 mg FEEDTUBE QDAY #30 tab.chew Warfarin [Coumadin] 7.5 mg PO QDAY #30 tablet
[2017-07-06] MEDS: BABY ASPIRIN FEEDTUBE SCH (10:43)
[2017-07-06] MEDS ORDERED: DIPRIVAN 10 MG/ML IV ONE ×2 (11:10)
--- NOTE | 2017-07-06 11:19 | Fluoroscopy Report ---
MODIFIED BARIUM SWALLOW INDICATION: Dysphagia. COMPARISON: None similar. FINDINGS: Fluoroscopy with video provided by radiologist for speech therapist to assess the swallowing mechanism. Food items of various consistencies given. Penetration and dental disease noted as also a Dobbhoff tube, not anchored at the nose. IMPRESSION: Successful modified barium swallow. Please refer to detailed report from speech pathologist. Satisfactory Dobbhoff tube placement confirmation also suggested before refeeding. I phoned the above results to patient's nurse, Ms. Bess, 11:15 AM, 07/06/2017. Thank you for the opportunity to participate in this patient's care.
--- NOTE | 2017-07-06 12:19 | Anesthesia Day of Surgery ---
Anesthesia Day of Surgery - Day of Surgery Patient Examined: Yes Patient H&P Reviewed: Yes Patient is NPO: Yes Beta Blockers: Yes
--- NOTE | 2017-07-06 12:19 | Anesthesia Consultation ---
Anesthesia Consult and Med Hx Date of service: 07/06/17 - Airway Anesthetic Teeth Evaluation: Dentures (upper and lower) ROM Head & Neck: Inadequate Mental/Hyoid Distance: Inadequate Mallampati Class: Class II Intubation Access Assessment: Probably Good - Pulmonary Exam CTA: Yes - Cardiac Exam Cardiac Exam: RRR - Pre-Operative Health Status ASA Pre-Surgery Classification: ASA3 Proposed Anesthetic Plan: MAC - Pulmonary Hx Smoking: Yes Hx Asthma: No COPD: No Hx Sleep Apnea: No (high risk) - Cardiovascular System Hx Hypertension: Yes (high cholesterol) Hx Coronary Artery Disease: No Hx Heart Attack/AMI: No Hx Angina: No Hx Percutaneous Transluminal Coronary Angioplasty (PTCA): No Hx Pacemaker: No Hx Internal Defibrillator: No Hx Valvular Heart Disease: No Hx Heart Murmur: No Hx Peripheral Vascular Disease: No - Central Nervous System Hx Seizures: No CVA: Yes (April 2017- no residual, 07/01 right sided weakness, unable to speak) Hx Psychiatric Problems: No - Gastrointestinal Hx Gastroesophageal Reflux Disease: No - Endocrine Hx Renal Disease: No Hx Liver Disease: No - Hematic Hx Sickle Cell Disease: No - Other Systems Hx Alcohol Use: No Hx Substance Use: No Hx Cancer: No Hx Obesity: No
[2017-07-06] MEDS ORDERED: ANCEF/STERILE WATER 2 GM/20 ML 2 GM/20 ML SYRINGE IV ONE (12:27)
[2017-07-06] MEDS ORDERED: SUBLIMAZE ONE (12:27)
[2017-07-06] MEDS ORDERED: XYLOCAINE MPF 2% ONE (12:30)
[2017-07-06] MEDS ORDERED: NACL 0.9% 1000 ML 1,000 ML IV SCH (13:00)
[2017-07-06] MEDS ORDERED: ANCEF/STERILE WATER 2 GM/20 ML 2 GM/20 ML SYRINGE IV NR (13:00)
--- NOTE | 2017-07-06 13:00 | Post Operative Note ---
Date of procedure: 07/06/17 Pre-op diagnosis: Dysphagia Post-op diagnosis: other (Esophagitis, successful G-tube placement) Findings: 1. Moderately severe erosive esophagitis throughout the esophagus. 2. Normal stomach and duodenum. 3. Successful 20Fr G-tube placement. Procedure: EGD/PEG Anesthesia: MAC Surgeon: LIN MIRANDA Estimated blood loss: minimal Pathology: none Condition: stable Disposition: floor (Hold warfarin today, monitor for bleed, and initiate TF.)
[2017-07-06] MEDS ORDERED: PANCREAZE DR 10,500 UNIT FEEDTUBE PRN (15:03)
[2017-07-06] MEDS ORDERED: SIMPLE SYRUP FEEDTUBE PRN ×2 (15:03)
[2017-07-06] MEDS ORDERED: SODIUM BICARBONATE FEEDTUBE PRN (15:03)
--- NOTE | 2017-07-06 17:22 | Operative Report ---
UPPER ENDOSCOPY AND G-TUBE PLACEMENT PROCEDURE: Upper endoscopy with G-tube placement. PREOPERATIVE DIAGNOSIS: Oropharyngeal dysphagia. POSTOPERATIVE DIAGNOSES: Esophagitis and successful G-tube placement. SEDATION: MAC by Anesthesia. HISTORY: The patient is a 67-year-old man status post acute CVA with dysphagia and aphasia. He failed a barium swallow. He presents for G-tube placement. He had been on Coumadin and heparin and these were held. His INR is 1.5. DESCRIPTION OF PROCEDURE: Indications, risks, and benefits were explained and consent was obtained with the patient's . The patient was placed back on exam table and sedated. [facility] upper scope was passed through the mouth and oropharynx into the gastric lumen and into the descending duodenum. Scope was withdrawn into the gastric lumen. An appropriate location was transilluminated on the abdominal wall surface and confirmed with 1:1 ballottement. This was prepped and draped in a sterile fashion. A 2 mL of 1% Xylocaine were infiltrated into the skin and subcutaneous tissues using the safe track technique. Subsequently, trocar was placed percutaneously into the gastric lumen and a guidewire was passed through. This was grasped with a snare and pulled out the mouth. A 20-[place] G-tube was attached to the wire at the mouth and pulled through the mouth and oropharynx into the gastric lumen and out of the skin. External bumper was fixed at 5 cm. Placement was confirmed by repeat endoscopy. FINDINGS: 1. Moderately severe erosive esophagitis involving the whole esophagus with scattered, shallow erosions and white fibrinous base. These erosions or ulcers were up 1-2 cm in diameter. 2. Normal gastric lumen with G-tube in place. 3. Normal duodenal bulb and duodenum. The patient tolerated the procedure well without immediate complications. IMPRESSION: 1. Successful G-tube placement. 2. Erosive esophagitis. PLAN: 1. Chronic proton pump inhibitors. 2. Monitor for bleeding. 3. Resume Coumadin tomorrow. JOB# [id number] HRC/NTS
[2017-07-06 20:02] VITALS: BP 180/96
== END 2017-07-06 20:45 | disposition hospice, inpatient (51) | DRG 64 ==
LOC: ED 11:25 → 4A 18:34
PROVIDERS: ADMIT Internal Medicine; ATTEND Internal Medicine
PROC: 0DH63UZ Insertion of Feeding Device into Stomach, Percutaneous Approach (ICD-10-PCS; principal; 2017-07-06)
DX: I63.9 Cerebral infarction, unspecified (principal); G93.41 Metabolic encephalopathy; G81.91 Hemiplegia, unspecified affecting right dominant side; E44.0 Moderate protein-calorie malnutrition; K22.10 Ulcer of esophagus without bleeding; F10.239 Alcohol dependence with withdrawal, unspecified; I10 Essential (primary) hypertension; F17.210 Nicotine dependence, cigarettes, uncomplicated; R47.02 Dysphasia; E78.00 Pure hypercholesterolemia, unspecified; Z79.82 Long term (current) use of aspirin; Z68.25 Body mass index [BMI] 25.0-25.9, adult; Z82.49 Family history of ischemic heart disease and other diseases of the circulatory system; Z79.899 Other long term (current) drug therapy; Z66 Do not resuscitate
CPT/HCPCS: 36415; 70450; 70496; 70498; 70544; 70551; 71020; 74000; 74230; 80048; 80061; 80074; 81001; 82140; 82962; 84443; 84484; 85014; 85018; 85025; 85027; 85049; 85520; 85610; 85730; 87040; 87086; 90686; 90732; 93005; 93010; 93308; 93321; 93325; A9270-GY; G8978-GO; G8979-GO; G8996-GN; G8997-GN; J0690; J1644; J2405; J2704; J3010; J3480; J7030; Q9967